=== PATIENT | female | born 1930 | race Caucasian/White ===

== ENCOUNTER 2019-06-16 09:36 | Inpatient (IN) | payer BC ==
--- NOTE | 2019-06-16 09:58 | EDM.PDOC ---
ED HPI GENERAL MEDICAL PROBLEM - General Chief Complaint: Upper Extremity Injury/Pain Stated Complaint: FALL RT SHOULDER PAIN Time Seen by Provider: 06/16/19 09:36 Source of Information: Reports: Patient, EMS History Limitations: Reports: Physical Impairment - History of Present Illness INITIAL COMMENTS - FREE TEXT/NARRATIVE: 88 y.o.w.f came to the ED by EMS after she fell on a ramp against a wall and hit her right shoulder and Head. No LOC. Pt has her right shoulder abducted, complaining of severe pain with any kind of movement. She noticed a "Bump" on her head as well. Pt has H/O esophageal CA. No N/V/D no CP, no SOB or any other acute med issues. BP 142/65 RR 18 Pulse oc 97% on RA Pulse 76 Temp 36.7 Onset Date: 06/16/19 Onset Time: 08:30 Duration: Minutes:, Hour(s): Location: Reports: Head, Neck, Upper Extremity, Right (shoulder) Quality: Reports: Dull, Pressure Severity: Moderate Improves with: Reports: Rest Worsens with: Reports: Movement Context: Reports: Trauma Associated Symptoms: Reports: No Other Symptoms Right shoulder Pain Score (Numeric/FACES): 10 - Related Data Allergies Allergy/AdvReac Type Severity Reaction Status Date / Time atorvastatin [From Lipitor] Allergy Other Verified 06/16/19 10:00 codeine Allergy Stomach Verified 06/16/19 10:00 Upset ibuprofen Allergy Swelling Verified 06/16/19 10:00 Penicillins Allergy Itching Verified 06/16/19 10:00 Home Meds: Home Meds Dextran 70/Hypromellose [Artificial Tears] 1 each EYEBOTH ASDIRECTED PRN [History] Glimepiride [Amaryl] 2 mg PO DAILY 06/16/19 [History] Pantoprazole 40 mg PO BID 06/16/19 [History] Prochlorperazine [Compazine] 10 mg PO Q6H PRN 06/16/19 [History] Review of Systems - Review of Systems Review Of Systems: See Below Constitutional: Reports: No Symptoms Eyes: Reports: No Symptoms Ears: Reports: No Symptoms Nose: Reports: Other (pain) Mouth/Throat: Reports: No Symptoms Respiratory: Reports: No Symptoms Cardiovascular: Reports: No Symptoms GI/Abdominal: Reports: No Symptoms Genitourinary: Reports: No Symptoms Musculoskeletal: Reports: Neck Pain, Shoulder Pain (right shoulder) Skin: Reports: No Symptoms Neurological: Reports: No Symptoms Psychiatric: Reports: No Symptoms ED EXAM, GENERAL - Physical Exam Exam: See Below Exam Limited By: Physical Impairment General Appearance: Alert, WD/WN, Moderate Distress Eye Exam: Bilateral Eye: Normal Inspection Ears: Normal External Exam, Normal Canal Ear Exam: Bilateral Ear: Auricle Normal Nose: Nasal Tenderness, Other (minor abrasion at nasal base) Throat/Mouth: Normal Inspection, Normal Lips, Normal Voice, No Airway Compromise Head: Facial Swelling (right foreheadm minor nasal deformity) Neck: Normal Inspection, Tender Lateral Respiratory/Chest: No Respiratory Distress, Lungs Clear, Normal Breath Sounds, Chest Non-Tender Cardiovascular: Normal Peripheral Pulses Peripheral Pulses: 2+: Brachial (L) GI/Abdominal: Normal Bowel Sounds (Female) Exam: Deferred Rectal (Female) Exam: Deferred Back Exam: Normal Inspection Extremities: Arm Pain, Limited Range of Motion (right shoulder with deformity) Neurological: Alert, Oriented, CN II-XII Intact, Normal Cognition Psychiatric: Normal Affect, Normal Mood Skin Exam: Wound/Incision (minor abration at base of nose) Lymphatic: No Adenopathy EKG INTERPRETATION EKG Date: 06/16/19 Time: 10:50 Rhythm: NSR Rate (Beats/Min): 59 [place]: Normal P-Wave: Present QRS: Normal ST-T: Depressed (T wave inversions inferior leads) QT: Normal Comparison: NA - No Prior EKG Course - Vital Signs Text/Narrative:: 88 y.o.w.f came to the ED by EMS after she fell on a ramp against a wall and hit her right shoulder and Head. No LOC. Pt has her right shoulder abducted, complaining of severe pain with any kind of movement. She noticed a "Bump" on her head as well. Pt has H/O esophageal CA. No N/V/D no CP, no SOB or any other acute med issues. BP 142/65 RR 18 Pulse oc 97% on RA Pulse 76 Temp 36.7 PE: WNWD W F with s/p Fall with right right shoulder pain, H/A and neck pain Imaging: CT right shoulder: Comminuted Fx with inferior dislocation CT head/ neck pending Labs: Pending ECG: Please see note above Impression: CT right shoulder: Comminuted Fx with inferior dislocation TX: [place] 10.58 am Consultation: Old ECG from 01/15/2013: NSR Nl ECG, no ST/T wave changes 11.05 am Consultation: Dr. Vega, Ortho: Scheduled right shoulder repair for tomorrow, admit to Hospitalist 11.14 am Consultation: Dr. Casanova, Hospitalist: Will accepted admission and further care 12.15 pm: Anesthesia has looked at the ECG and agreed to go forward with surgery tomorrow. Reexam: Improved, Pt's sister agreed to do the surgery at [facility]. Plan: Admit to [facility] Last Recorded V/S: Last Vital Signs Temp 36.5 C 06/16/19 09:41 Pulse 61 06/16/19 09:41 Resp 18 06/16/19 09:41 BP 142/65 H 06/16/19 09:41 Pulse Ox 97 06/16/19 09:41 - Orders/Labs/Meds Orders: Active Orders 24 hr Category Date Time Status CXR [Chest 1V Frontal] [CR] Stat Exams 06/16/19 10:51 Taken Cervical Spine wo Cont [CT] Stat Exams 06/16/19 10:49 Taken Head wo Cont [CT] Stat Exams 06/16/19 10:48 Taken Shoulder 1V Rt [CR] Stat Exams 06/16/19 10:48 Taken Upper Extremity wo Cont Rt [CT] Stat Exams 06/16/19 10:24 Taken BASIC METABOLIC PANEL,BMP [CHEM] Stat Lab 06/16/19 12:17 Ordered CBC WITH AUTO DIFF [HEME] Stat Lab 06/16/19 12:17 Ordered TROPONIN I [CHEM] Stat Lab 06/16/19 12:17 Ordered EKG 12 Lead [EK] Routine Ther 06/16/19 10:48 Ordered Labs: Laboratory Tests 06/16/19 06/16/19 Range/Units 11:30 11:30 Creatine Kinase 42 L (60-160) IU/L Troponin I < 0.017 L (<0.017-0.056) ng/mL Meds: Medications Discontinued Medications Generic Name Dose Route Start Last Admin Trade Name Freq PRN Reason Stop Dose Admin Hydrocodone Bitart/Acetaminophen 1 tab 06/16/19 10:04 06/16/19 10:08 [place] 325-5 Mg PO 06/16/19 10:05 1 tab ONETIME ONE Administration Departure - Departure Time of Disposition: 12:22 Disposition: Admitted As Inpatient 67 Condition: Fair Clinical Impression: Shoulder fracture, right Qualifiers: Encounter type: initial encounter Fracture type: closed Qualified Code(s): S42.91XA - Fracture of right shoulder girdle, part unspecified, initial encounter for closed fracture - Discharge Information Referrals: Isaiah Mcdowell MD [Primary Care Provider] - Forms: ED Department Discharge - My Orders Last 24 Hours: My Active Orders 06/16/19 10:24 Upper Extremity wo Cont Rt [CT] Stat 06/16/19 10:48 Head wo Cont [CT] Stat Shoulder 1V Rt [CR] Stat EKG 12 Lead [EK] Routine 06/16/19 10:49 Cervical Spine wo Cont [CT] Stat 06/16/19 10:51 CXR [Chest 1V Frontal] [CR] Stat 06/16/19 12:17 BASIC METABOLIC PANEL,BMP [CHEM] Stat CBC WITH AUTO DIFF [HEME] Stat TROPONIN I [CHEM] Stat - Assessment/Plan Last 24 Hours: My Active Orders 06/16/19 10:24 Upper Extremity wo Cont Rt [CT] Stat 06/16/19 10:48 Head wo Cont [CT] Stat Shoulder 1V Rt [CR] Stat EKG 12 Lead [EK] Routine 06/16/19 10:49 Cervical Spine wo Cont [CT] Stat 06/16/19 10:51 CXR [Chest 1V Frontal] [CR] Stat 06/16/19 12:17 BASIC METABOLIC PANEL,BMP [CHEM] Stat CBC WITH AUTO DIFF [HEME] Stat TROPONIN I [CHEM] Stat
[2019-06-16] MEDS ORDERED: Acetaminophen/HYDROcodone 325-5 MG Tab PO ONE (10:04)
[2019-06-16] MEDS ORDERED: Morphine 10 MG/ML SDV SUBCUT PRN (13:24)
[2019-06-16] MEDS ORDERED: Polyvinyl Alcohol 1.4% Ophth Soln 15 ML Bottle EYEBOTH PRN (14:00)
[2019-06-16] MEDS: Morphine 2 MG/ML Syringe IVPUSH PRN ×2 (19:02→22:48)
[2019-06-16] MEDS: Sodium Chloride 0.9% 10 ML Syringe FLUSH PRN (19:03)
[2019-06-16] MEDS: Pantoprazole 40 MG Tab.CR PO SCH (20:33)
[2019-06-16] MEDS: Lactated Ringers 1,000 ML IV SCH (22:50)
--- NOTE | 2019-06-16 23:45 | HP ---
ADMISSION DATE: 06/16/2019 CHIEF COMPLAINT: Right shoulder fracture. 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 According to the patient, she was walking and fell landing on her arm sustaining severe pain in the right shoulder area. She was taken to the emergency room at [facility] where she was examined by Dr. Garvey, found to have a shoulder fracture. An orthopedic consult from Dr. Vega was obtained and she is admitted now for surgical repair tomorrow. The patient states she is comfortable if she does not move her right arm. She keeps it in the right stop sign position to relieve the pain on that. PAST MEDICAL HISTORY: She was evaluated in September of 2018 for dysphagia and found to have a distal esophagus mass. Biopsy showed adenocarcinoma and she was treated with FOLFOX, completed in November of 2018. She has remained in remission. Complications included hypokalemia, diarrhea, and her symptoms have improved. She has type 2 diabetes, controlled with oral medication; osteoarthritis. 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 She has bilateral cataracts, macular degeneration, and decreased nutrition. MEDICATIONS: 1. Pantoprazole 40 mg b.i.d. 2. Compazine 10 mg every 6 hours p.r.n. 3. Glimepiride 2 mg daily. 4. Artificial Tears p.r.n. ALLERGIES: Atorvastatin, reaction not listed; codeine caused GI upset; ibuprofen caused swelling; and penicillins caused itching. HABITS: Nonsmoker and nondrinker. 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 She was accompanied by another sister to the hospital today. REVIEW OF SYSTEMS: GENERAL: No seizure, syncope, or recent significant weight change. SKIN: Negative for rash. HEENT: No recent changes in hearing or vision. She does wear hearing aids that she does not have with. She states her vision is adequate. No sore throat or URI. No current dysphagia. CARDIOPULMONARY: No cough, dyspnea, chest pain, or palpitations. No history of heart problems or lung problems to her knowledge. GASTROINTESTINAL: She has no current GI symptoms. No abdominal pain, diarrhea, constipation, hematochezia, or melena. MUSCULOSKELETAL: No joint inflammation or swelling, skin rash, or mood instability. PHYSICAL EXAMINATION: GENERAL: She is alert, comfortable, and a good historian. She looks younger than her 88 years. VITAL SIGNS: Blood pressure 142/56, pulse 57 and regular, respirations normal, O2 saturation 95% on room air, temperature 97.7, weight 152 pounds. SKIN: Anicteric. Warm and dry without rash. HEENT: TMs to be clear. Pupils are equal and reactive with cataracts visible. Oropharynx is clear with false upper and lower teeth. NECK: Supple. LUNGS: Clear with good air movement on the lateral side of her lungs. HEART: Regular. There is a 2/6 systolic murmur over the aortic area. No carotid radiation or carotid bruits. No JVD. ABDOMEN: Normal bowel sounds. Soft and nontender. No masses. No organomegaly. EXTREMITIES: Warm and well perfused. She has excellent pedal pulses. No edema. Her right upper extremity was not manipulated because of her fracture. Normal motion in left upper extremity. DIAGNOSTIC STUDIES: X-ray reveals a spiral displaced angulated and fracture of her right proximal humerus. White count 10,300, hemoglobin 13.5. Sodium 138, potassium 4.3, creatinine 1.1, glucose 207. Troponin 0.017. ASSESSMENT: 1. Spiral fracture, proximal right humerus. 2. History of esophageal cancer, post treatment in remission. 3. Type 2 diabetes. 4. Osteoarthritis. PLAN: EKG was reviewed that shows sinus rhythm at 59 beats per minute, T inversions in the inferior leads. No ST-segment changes. I consider Ms. Herrera ASA 3, but anticipate no complications from orthopedic surgery. She is to follow up with Dr. Vega's instructions for remaining n.p.o. We will continue to monitor and treat her diabetes, follow her electrolytes, renal function, and in addition provide palliative care for her underlying arthritis and infirmities of aging. Anticipate return to the [facility] at [facility] upon discharge. /[id number] RO/MODL
[2019-06-17] MEDS: Morphine 2 MG/ML Syringe IVPUSH PRN ×4 (02:52→23:05)
[2019-06-17] MEDS: Lactated Ringers 1,000 ML IV SCH ×3 (05:35→23:08)
[2019-06-17] MEDS: cefTRIAXone 1 GM Vial IVPUSH SCH (05:46)
[2019-06-17] MEDS: Sodium Chloride 0.9% 10 ML Syringe FLUSH PRN ×2 (05:46→12:11)
[2019-06-17] MEDS: Pantoprazole 40 MG Tab.CR PO SCH ×2 (06:06→20:24)
--- NOTE | 2019-06-17 08:31 | PN ---
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 This is markedly displaced and she had a consult by Dr. Vega who has planned to take her to surgery for repair this morning. The patient had urination last evening that was very strong and suggestive of UTI. Urinalysis showed greater than 100 white cells. She was started on lactated Ringer's at 150 mL/h and she was given Rocephin 1 g IV. She did not have specific burning with urination, etc. This morning, she is examined in her bed. She feels comfortable when her arm is not moving, but any movement causes pain. PHYSICAL EXAMINATION: GENERAL: She is alert, excellent historian, and looks younger than her age. VITAL SIGNS: Blood pressure 122/63, pulse 68 and regular, respirations 18, temperature 97.6, and O2 saturation 96% on room air. SKIN: Clear with no sign of trauma. LUNGS: Clear. HEART: Regular. ABDOMEN: Soft and nontender. EXTREMITIES: Show it to hold her right arm in the stop sign position. Normal spontaneous movement of her other extremities. LABORATORY DATA: Urinalysis 5-10 red cells, greater than 100 white cells, moderate occult blood, and negative nitrite. ASSESSMENT: 1. Right proximal humerus fracture. 2. Likely urinary tract infection. 3. Type 2 diabetes, controlled. 4. History of esophageal cancer, treatment completed, in remission. PLAN: She is to remain n.p.o. as per Dr. Vega instructions for surgery. I anticipate brief hospitalization postop with plans for her to return home to [facility] in [place] upon discharge. /[id number] RO/CANELOL
--- NOTE | 2019-06-17 10:16 | PCM.CONS ---
H&P History of Present Illness - General Date of Service: 06/16/19 Admit Problem/Dx: Admission Diagnosis/Problem Admission Diagnosis/Problem Shoulder injury Source of Information: Patient, Family, Provider History Limitations: Reports: No Limitations - History of Present Illness Onset of Symptoms: Reports: Sudden Symptom Onset Date: 06/16/19 Duration of Symptoms: Reports: Hour(s): Location: Reports: Upper Extremity, Right Quality: Reports: Burning, Sharp, Stabbing, Throbbing Severity: Moderate Improves with: Reports: Immobilization Worsens with: Reports: Movement Associated Symptoms: Reports: No Other Symptoms Right shoulder Pain Score (Numeric/FACES): 5 - Related Data Allergies/Adverse Reactions: Allergies Allergy/AdvReac Type Severity Reaction Status Date / Time atorvastatin [From Lipitor] Allergy Other Verified 06/16/19 10:00 codeine Allergy Stomach Verified 06/16/19 10:00 Upset ibuprofen Allergy Swelling Verified 06/16/19 10:00 Penicillins Allergy Itching Verified 06/16/19 10:00 Home Medications: Home Meds Dextran 70/Hypromellose [Artificial Tears] 1 each EYEBOTH ASDIRECTED PRN [History] Glimepiride [Amaryl] 2 mg PO DAILY 06/16/19 [History] Pantoprazole Sodium [Protonix] 40 mg PO BID 06/16/19 [History] Prochlorperazine [Compazine] 10 mg PO Q6H PRN 06/16/19 [History] Past Medical History HEENT History: Reports: Cataract, Hard of Hearing, Impaired Vision Cardiovascular History: Reports: None Respiratory History: Reports: None Gastrointestinal History: Reports: Jaundice Musculoskeletal History: Reports: Arthritis Psychiatric History: Reports: None Endocrine/Metabolic History: Reports: Diabetes, Type II Hematologic History: Reports: None Oncologic (Cancer) History: Reports: Esophageal Dermatologic History: Reports: None - Infectious Disease History Infectious Disease History: Reports: Chicken Pox, Measles, Mumps - Past Surgical History HEENT Surgical History: Reports: Adenoidectomy, Tonsillectomy Cardiovascular Surgical History: Reports: None Respiratory Surgical History: Reports: None GI Surgical History: Reports: Appendectomy, Colonoscopy, Other (See Below) Other GI Surgeries/Procedures: PEG tube Female Surgical History: Reports: Hysterectomy Oncologic Surgical History: Reports: None Social & Family History - Family History Family Medical History: Noncontributory - Tobacco Use Smoking Status *Q: Never Smoker Second Hand Smoke Exposure: No - Caffeine Use Caffeine Use: Reports: Coffee, Tea - Recreational Drug Use Recreational Drug Use: No H&P Review of Systems - Review of Systems: Review Of Systems: See Below General: Reports: No Symptoms HEENT: Reports: No Symptoms Pulmonary: Reports: No Symptoms Cardiovascular: Reports: No Symptoms Gastrointestinal: Reports: No Symptoms Genitourinary: Reports: No Symptoms Musculoskeletal: Reports: Shoulder Pain, Arm Pain, Joint Pain Skin: Reports: No Symptoms Psychiatric: Reports: No Symptoms Neurological: Reports: No Symptoms Hematologic/Lymphatic: Reports: No Symptoms Immunologic: Reports: No Symptoms Exam - Exam Exam: See Below - Vital Signs Vital Signs: Last Vital Signs Temp 97.6 F 06/16/19 23:00 Pulse 68 06/17/19 06:00 Resp 18 06/17/19 06:00 BP 122/63 06/17/19 06:00 Pulse Ox 96 06/17/19 06:00 Weight: 152 lb - Exam General: Alert, Oriented, Cooperative, Moderate Distress HEENT: PERRLA, Conjunctiva Clear, Hearing Intact, Mucosa Moist & [place] Neck: Supple, Trachea Midline Lungs: Normal Respiratory Effort GI/Abdominal Exam: No Distention Extremities: Arm Pain, Limited Range of Motion Peripheral Pulses: 2+: Radial (R) Skin: Warm, Dry, Intact Neuro Extensive - Mental Status: Alert, Oriented x3, Normal Mood/Affect, Normal Cognition, Memory Intact Psychiatric: Alert, Normal Affect, Normal Mood Physical Exam Comments:: Physical examination of the right upper extremity shows no tenderness to palpation distally on the arm, forearm, wrist, or fingers and the hand. Her refill time is less than 2 seconds. No paresthesias are noted over the lateral arm or distally on the right upper extremity. She has no tenderness to palpation over the clavicle. - Patient Data Lab Results Last 24 hrs: Laboratory Results - last 24 hr 06/16/19 06/16/19 06/16/19 Range/Units 11:30 11:30 11:30 WBC 10.3 (4.5-12.0) X10-3/uL RBC 4.40 (3.23-5.20) x10(6)uL Hgb 13.5 (11.5-15.5) g/dL Hct 38.6 (30.0-51.3) % MCV 87.9 (80-96) fL MCH 30.7 (27.7-33.6) pg MCHC 35.0 (32.2-35.4) g/dL RDW 13.3 (11.5-15.5) % Plt Count 181 (125-369) X10(3)uL MPV 8.3 (7.4-10.4) fL Add Manual Diff Yes Neutrophils % (Manual) 90 H (46-82) % Band Neutrophils % 3 (0-6) % Lymphocytes % (Manual) 5 L (13-37) % Monocytes % (Manual) 2 L (4-12) % Sodium (135-145) mmol/L Potassium (3.5-5.3) mmol/L Chloride (100-110) mmol/L Carbon Dioxide (21-32) mmol/L BUN (7-18) mg/dL Creatinine (0.55-1.02) mg/dL Est Cr Clr Drug Dosing mL/min Estimated GFR (MDRD) (>60) BUN/Creatinine Ratio (9-20) Glucose (80-116) mg/dL POC Glucose (80-116) mg/dL Calcium (8.6-10.2) mg/dL Creatine Kinase 42 L (60-160) IU/L Troponin I < 0.017 L (<0.017-0.056) ng/mL Urine Color (YELLOW) Urine Appearance (CLEAR) Urine pH (5.0-6.5) Ur Specific [place] (1.010-1.025) Urine Protein (NEGATIVE) mg/dL Urine Glucose (UA) (NORMAL) mg/dL Urine Ketones (NEGATIVE) mg/dL Urine Occult Blood (NEGATIVE) Urine Nitrite (NEGATIVE) Urine Bilirubin (NEGATIVE) Urine Urobilinogen (NEGATIVE) mg/dL Ur Leukocyte Esterase (NEGATIVE) Urine RBC (0-5) Urine WBC (0-5) Ur Squamous Epith Cells (NS,R,O) Urine Bacteria (NS) Urine Mucus (NS) Blood Type Gel Antibody Screen 06/16/19 06/16/19 06/16/19 Range/Units 11:30 11:30 17:32 WBC (4.5-12.0) X10-3/uL RBC (3.23-5.20) x10(6)uL Hgb (11.5-15.5) g/dL Hct (30.0-51.3) % MCV (80-96) fL MCH (27.7-33.6) pg MCHC (32.2-35.4) g/dL RDW (11.5-15.5) % Plt Count (125-369) X10(3)uL MPV (7.4-10.4) fL Add Manual Diff Neutrophils % (Manual) (46-82) % Band Neutrophils % (0-6) % Lymphocytes % (Manual) (13-37) % Monocytes % (Manual) (4-12) % Sodium 138 (135-145) mmol/L Potassium 4.3 (3.5-5.3) mmol/L Chloride 104 (100-110) mmol/L Carbon Dioxide 26 (21-32) mmol/L BUN 21 H (7-18) mg/dL Creatinine 1.1 H (0.55-1.02) mg/dL Est Cr Clr Drug Dosing 27.19 mL/min Estimated GFR (MDRD) 47 L (>60) BUN/Creatinine Ratio 19.1 (9-20) Glucose 207 H (80-116) mg/dL POC Glucose 176 H (80-116) mg/dL Calcium 9.3 (8.6-10.2) mg/dL Creatine Kinase (60-160) IU/L Troponin I (<0.017-0.056) ng/mL Urine Color (YELLOW) Urine Appearance (CLEAR) Urine pH (5.0-6.5) Ur Specific [place] (1.010-1.025) Urine Protein (NEGATIVE) mg/dL Urine Glucose (UA) (NORMAL) mg/dL Urine Ketones (NEGATIVE) mg/dL Urine Occult Blood (NEGATIVE) Urine Nitrite (NEGATIVE) Urine Bilirubin (NEGATIVE) Urine Urobilinogen (NEGATIVE) mg/dL Ur Leukocyte Esterase (NEGATIVE) Urine RBC (0-5) Urine WBC (0-5) Ur Squamous Epith Cells (NS,R,O) Urine Bacteria (NS) Urine Mucus (NS) Blood Type AB POSITIVE Gel Antibody Screen Negative 06/17/19 Range/Units 02:45 WBC (4.5-12.0) X10-3/uL RBC (3.23-5.20) x10(6)uL Hgb (11.5-15.5) g/dL Hct (30.0-51.3) % MCV (80-96) fL MCH (27.7-33.6) pg MCHC (32.2-35.4) g/dL RDW (11.5-15.5) % Plt Count (125-369) X10(3)uL MPV (7.4-10.4) fL Add Manual Diff Neutrophils % (Manual) (46-82) % Band Neutrophils % (0-6) % Lymphocytes % (Manual) (13-37) % Monocytes % (Manual) (4-12) % Sodium (135-145) mmol/L Potassium (3.5-5.3) mmol/L Chloride (100-110) mmol/L Carbon Dioxide (21-32) mmol/L BUN (7-18) mg/dL Creatinine (0.55-1.02) mg/dL Est Cr Clr Drug Dosing mL/min Estimated GFR (MDRD) (>60) BUN/Creatinine Ratio (9-20) Glucose (80-116) mg/dL POC Glucose (80-116) mg/dL Calcium (8.6-10.2) mg/dL Creatine Kinase (60-160) IU/L Troponin I (<0.017-0.056) ng/mL Urine Color Yellow (YELLOW) Urine Appearance Cloudy (CLEAR) Urine pH 5.0 (5.0-6.5) Ur Specific [place] 1.015 (1.010-1.025) Urine Protein Negative (NEGATIVE) mg/dL Urine Glucose (UA) Normal (NORMAL) mg/dL Urine Ketones Negative (NEGATIVE) mg/dL Urine Occult Blood Moderate H (NEGATIVE) Urine Nitrite Negative (NEGATIVE) Urine Bilirubin Negative (NEGATIVE) Urine Urobilinogen Normal (NEGATIVE) mg/dL Ur Leukocyte Esterase Large H (NEGATIVE) Urine RBC 5-10 H (0-5) Urine WBC >100 H (0-5) Ur Squamous Epith Cells Few H (NS,R,O) Urine Bacteria Many H (NS) Urine Mucus Few H (NS) Blood Type Gel Antibody Screen Result Diagrams: 06/16/19 11:30 06/16/19 11:30 Consult PN Assessment/Plan POD#: 0 Problem List Initiated/Reviewed/Updated: Yes My Orders Last 24 Hours: My Active Orders 06/16/19 14:20 Verify Patient Consent Obtain [RC] ASDIRECTED Sodium Chloride 0.9% [Saline Flush] 10 ml FLUSH ASDIRECTED PRN Peripheral IV Insertion Adult [OM.PC] Routine 06/17/19 11:30 Acetaminophen [Tylenol Extra Strength] 1,000 mg PO ONETIME ONE Gabapentin [Neurontin] 300 mg PO ONETIME ONE Scopolamine [Transderm-Scop] 1.5 mg TRDERM ONETIME ONE 06/17/19 12:30 Insert Forrest Catheter [Insert Urinary Catheter] [OM.PC] Q24H Urinary Catheter Assessment [RC] QSHIFT Clindamycin in 0.9 % Sod Chlor [Cleocin in NS] 900 mg in 50 ml IV ONETIME Ropivacaine [Naropin 0.5%] 49.25 ml EPINEPHrine [Adrenalin] 0.5 mg cloNIDine [ Duraclon] 80 mcg Sodium Chloride 0.9% [Normal Saline] 49.45 ml INJECT ASDIRECTED 06/17/19 13:00 Tranexamic Acid [Cyklokapron] 3,000 mg Sodium Chloride 0.9% [Normal Saline] 100 ml IRR ONETIME Plan: Imaging: Plain films as well as CT show a four-part comminuted proximal humerus and humeral head fracture. The shaft appears normal. Plan: I explained to the patient as well as one of the other sisters that were with her that unfortunately this is operative because of the four-part displaced fracture. I recommended a total versus reverse total shoulder arthroplasty. We can complete this on Sunday when we have ultrasound available for an interscalene block. Risks and benefits of the procedure were explained to the patient. She'll be admitted to the hospitalist service and nothing by mouth after midnight.
[2019-06-17] MEDS ORDERED: Lactated Ringers 1,000 ML IV SCH (11:30)
[2019-06-17] MEDS ORDERED: Scopolamine 1.5 MG Transdermal Patch TRDERM ONE (11:30)
[2019-06-17] MEDS ORDERED: Gabapentin 300 MG Cap PO ONE (11:30)
[2019-06-17] MEDS ORDERED: Acetaminophen 500 MG Tab PO ONE (11:30)
[2019-06-17] MEDS ORDERED: Clindamycin in 0.9 % Sod Chlor 900 MG/50 ML BAG IV ONE (12:30)
[2019-06-17] MEDS ORDERED: Ropivacaine 49.25 ML, EPINEPHrine 0.5 MG, cloNIDine 80 MCG, Sodium Chloride 0.9% 49.45 ML INJECT SCH ×4 (12:30)
[2019-06-17] MEDS ORDERED: ePHEDrine 50 MG/ML SDV IV ONE (12:34)
[2019-06-17] MEDS ORDERED: fentaNYL 100 MCG/2 ML SDV IV ONE (12:34)
[2019-06-17] MEDS ORDERED: Ropivacaine 0.5% 5 MG/ML 20 ML SDV INJECT ONE (12:34)
[2019-06-17] MEDS ORDERED: Midazolam 1 MG/ML 2 ML SDV IV ONE (12:34)
[2019-06-17] MEDS ORDERED: Succinylcholine 200 MG/10 ML MDV IV ONE (12:34)
[2019-06-17] MEDS ORDERED: Dextrose 5% in Water 500 ML IV ONE (12:34)
[2019-06-17] MEDS ORDERED: Phenylephrine 1% 10 MG/ML SDV IV ONE (12:34)
[2019-06-17] MEDS ORDERED: Lactated Ringers 1,000 ML IV ONE (12:34)
[2019-06-17] MEDS ORDERED: Rocuronium 50 MG/5 ML Vial IV ONE (12:34)
[2019-06-17] MEDS ORDERED: Propofol 200 MG/20 ML SDV IV ONE (12:34)
[2019-06-17] MEDS ORDERED: Tranexamic Acid 3,000 MG, Sodium Chloride 0.9% 100 ML IRR ONE ×2 (13:00)
--- NOTE | 2019-06-17 13:42 | PCM.SN ---
- Free Text/Narrative Note: ANESTHESIA ACUTE PAIN SERVICE Date: 06/17/2019 Time: 1209 to 1236 Preoperative Dx: Right Proximal Humerus Fx with Dislocation Postoperative Rx: Right Reverse Total Shoulder Arthroplasty Procedure: Right Interscalene Nerve Block with Ultrasound [U/S] Guidance and Nerve Stimulation Dr. Vega requested a peripheral nerve block for postoperative pain control. I discussed this procedure with the patient and friend detailing the risks and benefits of this nerve block including failure and chronic neck pain. All of their questions are answered and the patient wishes to proceed. A consent was obtained. Monitors: NIBP, Heart Rate, SpO2 and Nasal O2 at 3 L/M. Sedation: Versed in divided doses to a total of 2 mg's IV. The patient was easily aroused and orientated throughout the procedure. The patient was placed in a supine position with the H.O.B. elevated 45 degrees and her head turned to the left. A preprocedure U/S scan was done revealing some distorted anatomy due to her right arm positioning and very short clavicle. Under direct visualization, I located the Anterior and Middle Scalene muscles and what appeared to be the chaining of the right Brachial Plexus. I prepped the site widely with a Chlora-Prep swab X 1 and allowed to dry. Using aseptic technique, I infiltrated the needle insertion site with 1% Lidocaine plain [1ml] using a 30 Ga. needle. Then under direct U/S visualization, I then inserted a 22 Ga. 2 In. Stimuplex Ultra 360 Insulated Echogenic Needle and advanced it to a good position. I did have a nerve stimulator on during this time and got a positive Biceps response at .4 mA which was gone after an injection of 1 ml of normal saline. Under direct U/S visualization, a total of 20 ml's .5% Naropin was given in divided doses with frequent negative aspirations for blood. The patient tolerated this well without complaints and no local toxicity was noted. After about 5 minutes postblock, she stated she had no pain. Documentation: Please see the PAC system in Radiology for images taken of this nerve block. Thank you for using this service. CHEVY New CRNA
--- NOTE | 2019-06-17 15:10 | PCM.OPNOTE ---
- General Post-Op/Procedure Note Date of Surgery/Procedure: 06/17/19 Operative Procedure(s): right reverse total shoulder arthroplasty Pre Op Diagnosis: right proximal humerus fracture, closed Post-Op Diagnosis: Same Anesthesia Technique: General ET Tube, Regional Block Primary Surgeon: Glen Vega Anesthesia Provider: Cindy Tyler EBL in mLs: 200 Drain/Tube Comments:: prevena 13cm wound vac Complications: none Condition: Good
[2019-06-17] MEDS: Clindamycin in 0.9 % Sod Chlor 600 MG/50 ML BAG IV SCH (20:24)
[2019-06-17] MEDS: Glimepiride 2 MG Tab PO SCH (23:02)
[2019-06-18] MEDS: Clindamycin in 0.9 % Sod Chlor 600 MG/50 ML BAG IV SCH (04:21)
[2019-06-18] MEDS: cefTRIAXone 1 GM Vial IVPUSH SCH (05:43)
[2019-06-18] MEDS: Sodium Chloride 0.9% 10 ML Syringe FLUSH PRN (05:45)
[2019-06-18] MEDS: Pantoprazole 40 MG Tab.CR PO SCH (05:49)
[2019-06-18] MEDS: Lactated Ringers 1,000 ML IV SCH (06:15)
[2019-06-18] MEDS: Aspirin 325 MG Tab.EC PO SCH (08:17)
--- NOTE | 2019-06-18 09:06 | PCM.PN ---
- General Info Date of Service: 06/18/19 Admission Dx/Problem (Free Text): Admission Diagnosis/Problem Admission Diagnosis/Problem Shoulder injury Functional Status: Reports: Pain Controlled, Tolerating Diet, Ambulating - Review of Systems General: Reports: No Symptoms HEENT: Reports: No Symptoms Pulmonary: Reports: No Symptoms Cardiovascular: Reports: No Symptoms Gastrointestinal: Reports: No Symptoms Genitourinary: Reports: No Symptoms Musculoskeletal: Reports: Shoulder Pain Skin: Reports: No Symptoms Neurological: Reports: No Symptoms Psychiatric: Reports: No Symptoms - Patient Data Vitals - Most Recent: Last Vital Signs Temp 99.0 F 06/18/19 07:45 Pulse 90 06/18/19 07:45 Resp 18 06/18/19 07:45 BP 110/52 L 06/18/19 07:45 Pulse Ox 97 06/18/19 07:50 Weight - Most Recent: 152 lb I&O - Last 24 Hours: Intake & Output 06/17/19 06/18/19 06/18/19 22:59 06:59 14:59 Intake Total 466 2102 240 Output Total 175 850 Balance 291 1252 240 Lab Results Last 24 Hours: Laboratory Results - last 24 hr 06/16/19 06/17/19 06/17/19 Range/Units 20:37 08:21 21:47 WBC (4.5-12.0) X10-3/uL RBC (3.23-5.20) x10(6)uL Hgb (11.5-15.5) g/dL Hct (30.0-51.3) % MCV (80-96) fL MCH (27.7-33.6) pg MCHC (32.2-35.4) g/dL RDW (11.5-15.5) % Plt Count (125-369) X10(3)uL MPV (7.4-10.4) fL Add Manual Diff Neutrophils % (Manual) (46-82) % Lymphocytes % (Manual) (13-37) % Monocytes % (Manual) (4-12) % Sodium (135-145) mmol/L Potassium (3.5-5.3) mmol/L Chloride (100-110) mmol/L Carbon Dioxide (21-32) mmol/L BUN (7-18) mg/dL Creatinine (0.55-1.02) mg/dL Est Cr Clr Drug Dosing mL/min Estimated GFR (MDRD) (>60) BUN/Creatinine Ratio (9-20) Glucose (80-116) mg/dL POC Glucose 185 H 114 145 H (80-116) mg/dL Calcium (8.6-10.2) mg/dL 06/18/19 06/18/19 Range/Units 06:05 06:05 WBC 9.8 (4.5-12.0) X10-3/uL RBC 3.15 L (3.23-5.20) x10(6)uL Hgb 9.8 L D (11.5-15.5) g/dL Hct 27.8 L D (30.0-51.3) % MCV 88.2 (80-96) fL MCH 31.2 (27.7-33.6) pg MCHC 35.3 (32.2-35.4) g/dL RDW 13.7 (11.5-15.5) % Plt Count 146 (125-369) X10(3)uL MPV 8.0 (7.4-10.4) fL Add Manual Diff Yes Neutrophils % (Manual) 94 H (46-82) % Lymphocytes % (Manual) 2 L (13-37) % Monocytes % (Manual) 4 (4-12) % Sodium 136 (135-145) mmol/L Potassium 4.3 (3.5-5.3) mmol/L Chloride 101 (100-110) mmol/L Carbon Dioxide 26 (21-32) mmol/L BUN 14 (7-18) mg/dL Creatinine 1.0 (0.55-1.02) mg/dL Est Cr Clr Drug Dosing 29.91 mL/min Estimated GFR (MDRD) 52 L (>60) BUN/Creatinine Ratio 14.0 (9-20) Glucose 141 H (80-116) mg/dL POC Glucose (80-116) mg/dL Calcium 7.8 L (8.6-10.2) mg/dL Justice Results Last 24 Hours: Microbiology 06/17/19 02:45 Urine Culture - Final Urine, Bladder Escherichia Coli Med Orders - Current: Current Medications Acetaminophen (Tylenol) 650 mg PO Q4H PRN PRN Reason: Pain Artificial Tears (Liquitears 1.4% Ophth Soln) 0 ml EYEBOTH ASDIRECTED PRN PRN Reason: DRY EYES Aspirin (Ecotrin) 325 mg PO DAILY [facility] Last Admin: 06/18/19 08:17 Dose: 325 mg Ropivacaine 49.25 ml/Epinephrine HCl 0.5 mg/Clonidine HCl 80 mcg/ Sodium Chloride 49.45 ml 0 ml INJECT ASDIRECTED [facility] Last Admin: 06/17/19 13:10 Dose: 100 syringe Glimepiride (Amaryl) 2 mg PO WITHBREAKFAST [facility] Last Admin: 06/17/19 23:02 Dose: Not Given Heparin Sodium (Porcine) (Heparin Lock Flush 100 Units/Ml) 500 units FLUSH ASDIRECTED PRN PRN Reason: Keep Vein Open Last Admin: 06/17/19 12:14 Dose: 500 units Lactated Ringer's (Ringers, Lactated) 1,000 mls @ 150 mls/hr IV ASDIRECTED [facility] Last Admin: 06/18/19 06:15 Dose: 150 mls/hr Morphine Sulfate (Morphine) 2 mg IVPUSH Q2H PRN PRN Reason: Pain Last Admin: 06/17/19 23:05 Dose: 2 mg Morphine Sulfate (Morphine) 6 mg SUBCUT Q4H PRN PRN Reason: Pain Pantoprazole Sodium (Protonix) 40 mg PO BID@0600,2100 [facility] Last Admin: 06/18/19 05:49 Dose: 40 mg Sodium Chloride (Saline Flush) 10 ml FLUSH ASDIRECTED PRN PRN Reason: Keep Vein Open Last Admin: 06/18/19 05:45 Dose: 10 ml Sodium Chloride (Saline Flush) 10 ml FLUSH ASDIRECTED PRN PRN Reason: Keep Vein Open Last Admin: 06/17/19 05:46 Dose: 10 ml Discontinued Medications Acetaminophen (Tylenol Extra Strength) 1,000 mg PO ONETIME ONE Stop: 06/17/19 11:31 Last Admin: 06/17/19 13:08 Dose: Not Given Hydrocodone Bitart/Acetaminophen ([place] 325-5 Mg) 1 tab PO ONETIME ONE Stop: 06/16/19 10:05 Last Admin: 06/16/19 10:08 Dose: 1 tab Ceftriaxone Sodium (Rocephin) 1 gm IVPUSH Q24H [facility] Last Admin: 06/18/19 05:43 Dose: 1 gm Tranexamic Acid 3,000 mg/ (Sodium Chloride 100 ml) 0 mg IRR ONETIME ONE Stop: 06/17/19 13:01 Last Admin: 06/17/19 13:11 Dose: 100 irr Gabapentin (Neurontin) 300 mg PO ONETIME ONE Stop: 06/17/19 11:31 Last Admin: 06/17/19 13:08 Dose: Not Given Clindamycin/Sodium Chloride (Cleocin In Ns) 900 mg in 50 mls @ 100 mls/hr IV ONETIME ONE Stop: 06/17/19 12:59 Last Admin: 06/17/19 11:55 Dose: 100 mls/hr Lactated Ringer's (Ringers, Lactated) 1,000 mls @ 125 mls/hr IV ASDIRECTED JEFFREY Clindamycin/Sodium Chloride (Cleocin In Ns) 600 mg in 50 mls @ 100 mls/hr IV Q8H JEFFREY Stop: 06/18/19 04:29 Last Admin: 06/18/19 04:21 Dose: 100 mls/hr Scopolamine (Transderm-Scop) 1.5 mg TRDERM ONETIME ONE Stop: 06/17/19 11:31 Last Admin: 06/17/19 13:07 Dose: Not Given - Exam General: Alert, Oriented, Cooperative, No Acute Distress HEENT: Pupils Equal, Pupils Reactive, EOMI, Mucous Membr. Moist/[place] Neck: Supple, Trachea Midline Lungs: Normal Respiratory Effort GI/Abdominal Exam: No Distention Extremities: Joint Swelling, Limited Range of Motion, Increased Warmth Peripheral Pulses: 2+: Radial (R) Skin: Warm, Dry, Intact Wound/Incisions: Healing Well, Dressing Dry and Intact, No Drainage Neurological: No New Focal Deficit Psy/Mental Status: Alert, Normal Affect, Normal Mood - Problem List & Annotations (1) Shoulder fracture, right SNOMED Code(s): 99289480572802479, 95215354181004312 Code(s): S42.91XA - FRACTURE OF RIGHT SHOULDER GIRDLE, PART UNSP, INIT Status: Acute Current Visit: Yes Qualifiers: Encounter type: initial encounter Fracture type: closed Qualified Code(s) : S42.91XA - Fracture of right shoulder girdle, part unspecified, initial encounter for closed fracture - Problem List Review Problem List Initiated/Reviewed/Updated: Yes - My Orders Last 24 Hours: My Active Orders 06/17/19 12:30 Insert Torrez Catheter [Insert Urinary Catheter] [OM.PC] Q24H Urinary Catheter Assessment [RC] QSHIFT Ropivacaine [Naropin 0.5%] 49.25 ml EPINEPHrine [Adrenalin] 0.5 mg cloNIDine [ Duraclon] 80 mcg Sodium Chloride 0.9% [Normal Saline] 49.45 ml INJECT ASDIRECTED 06/17/19 15:39 Acetaminophen [Tylenol] 650 mg PO Q4H PRN 06/17/19 18:16 Fluoro Up To 1Hr [CR] Routine 06/17/19 Dinner Clear Liquid Diet [DIET] 06/18/19 09:00 Aspirin [Ecotrin] 325 mg PO DAILY - Plan Plan:: A: 88 yo female POD 1 Right reverse TSA P: DVT prophylaxis, pain control, PT, OT. Remove torrez. Start PROM in 3 days
[2019-06-18] MEDS ORDERED: Acetaminophen/HYDROcodone 325-5 MG Tab PO PRN ×2 (10:09→10:10)
[2019-06-18] MEDS: Morphine 2 MG/ML Syringe IVPUSH PRN (10:10)
--- NOTE | 2019-06-18 11:15 | PN ---
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 She underwent ORIF by Dr. Aguilar yesterday and has had a good postoperative course. She is reporting moderate pain in the right shoulder at this time. She has eaten breakfast and is drinking fluids adequately. She has a Forrest catheter in place and she has recently been walking about the room with assistance. PHYSICAL EXAMINATION: GENERAL: She is alert, comfortable, an excellent historian. VITAL SIGNS: Blood pressure 110/52, pulse 90 and regular, respirations normal, O2 saturation 97% on 1 L nasal cannula oxygen. SKIN: Clear. LUNGS: Clear to the bases. HEART: Regular without murmur or gallop. EXTREMITIES: Show her right arm to be in a shoulder immobilizer. No peripheral edema. LABORATORY DATA: Hemoglobin 9.8 g, white count 9800, creatinine 1.0. Electrolytes normal. Urinalysis from yesterday showed UTI. ASSESSMENT: 1. Day one postop right shoulder open reduction and internal fixation. 2. Type 2 diabetes. 3. Urinary tract infection. 4. History of esophageal cancer, status post treatment with no known active disease. PLAN: We will increase her activity as tolerated by keeping her shoulder immobilized per Dr. Vega. We will continue to monitor blood sugars. Add an oral analgesic in hydrocodone. We will remove her Forrest catheter later today and recheck urinalysis tomorrow. I anticipate discharge back to [facility] when safe from an orthopedic standpoint. /[id number] RO/MODL
[2019-06-18] MEDS: Acetaminophen 325 MG Tab PO PRN (17:00)
[2019-06-19] MEDS: Pantoprazole 40 MG Tab.CR PO SCH (05:44)
[2019-06-19] MEDS: Glimepiride 2 MG Tab PO SCH (08:11)
[2019-06-19] MEDS: Acetaminophen 325 MG Tab PO PRN (08:11)
[2019-06-19] MEDS: Aspirin 325 MG Tab.EC PO SCH (08:11)
--- NOTE | 2019-06-19 09:45 | PN ---
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 She underwent ORIF by Dr. Vega on 06/17/2019. She has been doing well postoperatively. She also has a history of type 2 diabetes and a remote history of esophageal cancer. She has been eating, up walking. She says her pain control is adequate on oral medications and she is anxious to go home. PHYSICAL EXAMINATION: GENERAL: She is alert, comfortable, and a good historian. VITAL SIGNS: Blood pressure 93/51, pulse 88 and regular, respirations 16 and O2 saturation 93% on room air. Weight 152 pounds. HEENT: She has bruising over her face in the raccoon eyes distribution. EXTREMITIES: She is in a right shoulder immobilizer. No other areas of skin trauma noted. MOUTH: Dry. LUNGS: Clear. HEART: Regular with a systolic murmur. ABDOMEN: Soft. EXTREMITIES: Showed no ankle edema. LABORATORY DATA: Urinalysis: 5-10 red cells and 10-20 white cells. ASSESSMENT: 1. Postoperative right shoulder fracture. 2. Type 2 diabetes. 3. Postoperative anemia. 4. History of esophageal cancer, treated. 5. Urinary tract infection. PLAN: We will treat her with Macrobid for the UTI. Continue her other medications and discharge when Dr. Vega feels she is appropriate for discharge from an orthopedic standpoint. /[id number] ELSA/BRIANA
--- NOTE | 2019-06-19 10:10 | PCM.PN ---
- General Info Date of Service: 06/19/19 Admission Dx/Problem (Free Text): Admission Diagnosis/Problem Admission Diagnosis/Problem Shoulder injury Functional Status: Reports: Pain Controlled, Tolerating Diet, Ambulating, Urinating - Review of Systems General: Reports: No Symptoms HEENT: Reports: No Symptoms Pulmonary: Reports: No Symptoms Cardiovascular: Reports: No Symptoms Gastrointestinal: Reports: No Symptoms Genitourinary: Reports: No Symptoms Musculoskeletal: Reports: Shoulder Pain Skin: Reports: No Symptoms Neurological: Reports: No Symptoms Psychiatric: Reports: No Symptoms - Patient Data Vitals - Most Recent: Last Vital Signs Temp 97.7 F 06/19/19 00:00 Pulse 88 06/19/19 08:00 Resp 16 06/19/19 08:00 BP 93/51 L 06/19/19 08:00 Pulse Ox 93 L 06/19/19 08:00 Weight - Most Recent: 152 lb I&O - Last 24 Hours: Intake & Output 06/18/19 06/19/19 06/19/19 22:59 06:59 14:59 Output Total 100 300 Balance -100 -300 Lab Results Last 24 Hours: Laboratory Results - last 24 hr 06/18/19 06/18/19 06/18/19 Range/Units 07:45 11:41 20:48 POC Glucose 157 H 176 H 240 H (80-116) mg/dL Urine Color (YELLOW) Urine Appearance (CLEAR) Urine pH (5.0-6.5) Ur Specific [place] (1.010-1.025) Urine Protein (NEGATIVE) mg/dL Urine Glucose (UA) (NORMAL) mg/dL Urine Ketones (NEGATIVE) mg/dL Urine Occult Blood (NEGATIVE) Urine Nitrite (NEGATIVE) Urine Bilirubin (NEGATIVE) Urine Urobilinogen (NEGATIVE) mg/dL Ur Leukocyte Esterase (NEGATIVE) Urine RBC (0-5) Urine WBC (0-5) Ur Squamous Epith Cells (NS,R,O) Urine Bacteria (NS) 06/19/19 Range/Units 05:30 POC Glucose (80-116) mg/dL Urine Color Yellow (YELLOW) Urine Appearance Cloudy (CLEAR) Urine pH 7.0 H (5.0-6.5) Ur Specific [place] 1.005 L (1.010-1.025) Urine Protein Negative (NEGATIVE) mg/dL Urine Glucose (UA) Normal (NORMAL) mg/dL Urine Ketones Negative (NEGATIVE) mg/dL Urine Occult Blood Moderate H (NEGATIVE) Urine Nitrite Negative (NEGATIVE) Urine Bilirubin Negative (NEGATIVE) Urine Urobilinogen 1 H (NEGATIVE) mg/dL Ur Leukocyte Esterase Large H (NEGATIVE) Urine RBC 5-10 H (0-5) Urine WBC 10-20 H (0-5) Ur Squamous Epith Cells Few H (NS,R,O) Urine Bacteria Moderate H (NS) Justice Results Last 24 Hours: Microbiology 06/17/19 02:45 Urine Culture - Final Urine, Bladder Escherichia Coli Med Orders - Current: Current Medications Acetaminophen (Tylenol) 650 mg PO Q4H PRN PRN Reason: Pain Last Admin: 06/19/19 08:11 Dose: 650 mg Hydrocodone Bitart/Acetaminophen ([place] 325-5 Mg) 1 tab PO Q4H PRN PRN Reason: Pain (moderate 4-6) Hydrocodone Bitart/Acetaminophen ([place] 325-5 Mg) 2 tab PO Q4H PRN PRN Reason: severe pain Artificial Tears (Liquitears 1.4% Ophth Soln) 0 ml EYEBOTH ASDIRECTED PRN PRN Reason: DRY EYES Aspirin (Ecotrin) 325 mg PO DAILY [facility] Last Admin: 06/19/19 08:11 Dose: 325 mg Ropivacaine 49.25 ml/Epinephrine HCl 0.5 mg/Clonidine HCl 80 mcg/ Sodium Chloride 49.45 ml 0 ml INJECT ASDIRECTED [facility] Last Admin: 06/17/19 13:10 Dose: 100 syringe Glimepiride (Amaryl) 2 mg PO WITHBREAKFAST [facility] Last Admin: 06/19/19 08:11 Dose: 2 mg Heparin Sodium (Porcine) (Heparin Lock Flush 100 Units/Ml) 500 units FLUSH ASDIRECTED PRN PRN Reason: Keep Vein Open Last Admin: 06/17/19 12:14 Dose: 500 units Morphine Sulfate (Morphine) 2 mg IVPUSH Q2H PRN PRN Reason: Pain Last Admin: 06/18/19 10:10 Dose: 2 mg Morphine Sulfate (Morphine) 6 mg SUBCUT Q4H PRN PRN Reason: Pain Nitrofurantoin Macrocrystals (Macrobid) 100 mg PO BID [facility] Pantoprazole Sodium (Protonix) 40 mg PO 0600 [facility] Last Admin: 06/19/19 05:44 Dose: 40 mg Sodium Chloride (Saline Flush) 10 ml FLUSH ASDIRECTED PRN PRN Reason: Keep Vein Open Last Admin: 06/17/19 05:46 Dose: 10 ml Discontinued Medications Acetaminophen (Tylenol Extra Strength) 1,000 mg PO ONETIME ONE Stop: 06/17/19 11:31 Last Admin: 06/17/19 13:08 Dose: Not Given Hydrocodone Bitart/Acetaminophen ([place] 325-5 Mg) 1 tab PO ONETIME ONE Stop: 06/16/19 10:05 Last Admin: 06/16/19 10:08 Dose: 1 tab Ceftriaxone Sodium (Rocephin) 1 gm IVPUSH Q24H [facility] Last Admin: 06/18/19 05:43 Dose: 1 gm Tranexamic Acid 3,000 mg/ (Sodium Chloride 100 ml) 0 mg IRR ONETIME ONE Stop: 06/17/19 13:01 Last Admin: 06/17/19 13:11 Dose: 100 irr Gabapentin (Neurontin) 300 mg PO ONETIME ONE Stop: 06/17/19 11:31 Last Admin: 06/17/19 13:08 Dose: Not Given Clindamycin/Sodium Chloride (Cleocin In Ns) 900 mg in 50 mls @ 100 mls/hr IV ONETIME ONE Stop: 06/17/19 12:59 Last Admin: 06/17/19 11:55 Dose: 100 mls/hr Lactated Ringer's (Ringers, Lactated) 1,000 mls @ 125 mls/hr IV ASDIRECTED [facility] Lactated Ringer's (Ringers, Lactated) 1,000 mls @ 150 mls/hr IV ASDIRECTED [facility] Last Admin: 06/18/19 06:15 Dose: 150 mls/hr Clindamycin/Sodium Chloride (Cleocin In Ns) 600 mg in 50 mls @ 100 mls/hr IV Q8H [facility] Stop: 06/18/19 04:29 Last Admin: 06/18/19 04:21 Dose: 100 mls/hr Pantoprazole Sodium (Protonix) 40 mg PO BID@0600,2100 [facility] Last Admin: 06/18/19 05:49 Dose: 40 mg Scopolamine (Transderm-Scop) 1.5 mg TRDERM ONETIME ONE Stop: 06/17/19 11:31 Last Admin: 06/17/19 13:07 Dose: Not Given Sodium Chloride (Saline Flush) 10 ml FLUSH ASDIRECTED PRN PRN Reason: Keep Vein Open Last Admin: 06/18/19 05:45 Dose: 10 ml - Exam General: Alert, Oriented, Cooperative, No Acute Distress HEENT: Pupils Equal, Pupils Reactive, EOMI, Mucous Membr. Moist/[place] Neck: Supple, Trachea Midline Lungs: Normal Respiratory Effort GI/Abdominal Exam: No Distention Extremities: Joint Swelling, Limited Range of Motion Peripheral Pulses: 2+: Radial (R) Skin: Warm, Dry, Intact Wound/Incisions: Healing Well, Dressing Dry and Intact, No Drainage Neurological: No New Focal Deficit Psy/Mental Status: Alert, Normal Affect, Normal Mood - Problem List & Annotations (1) Shoulder fracture, right SNOMED Code(s): 72438101737829538, [id number] Code(s): S42.91XA - FRACTURE OF RIGHT SHOULDER GIRDLE, PART UNSP, INIT Status: Acute Current Visit: Yes Qualifiers: Encounter type: initial encounter Fracture type: closed Qualified Code(s) : S42.91XA - Fracture of right shoulder girdle, part unspecified, initial encounter for closed fracture - Problem List Review Problem List Initiated/Reviewed/Updated: Yes - My Orders Last 24 Hours: My Active Orders 06/18/19 Lunch Consistent Carbohydrate Diet [DIET] - Plan Plan:: A: 88 yo female POD 2 Right reverse TSA P: DVT prophylaxis, pain control, PT, OT. Start PROM in 2 days. Remove VAC next Sunday or when pump turns off then replace dressing eod f/u three weeks
[2019-06-19] MEDS: Nitrofurantoin Monohydrate/Macrocrystalline 100 MG Cap PO SCH ×2 (10:39→20:37)
[2019-06-19] MEDS ORDERED: Dextrose 5%-0.45% NaCl 1,000 ML IV SCH (23:45)
[2019-06-19] MEDS ORDERED: 50% Dextrose in Water 50 ML Syringe IVPUSH ONE (23:56)
[2019-06-20] MEDS: Pantoprazole 40 MG Tab.CR PO SCH (07:08)
--- NOTE | 2019-06-20 08:35 | PCM.PN ---
- General Info Date of Service: 06/20/19 Subjective Update: Had hypoglycemia overnight. Pain is well controlled. Functional Status: Reports: Pain Controlled, Tolerating Diet - Review of Systems HEENT: Reports: No Symptoms Pulmonary: Reports: No Symptoms Cardiovascular: Reports: No Symptoms - Patient Data Vitals - Most Recent: Last Vital Signs Temp 99.3 F 06/20/19 04:00 Pulse 72 06/20/19 04:00 Resp 18 06/20/19 04:00 BP 110/45 L 06/20/19 04:00 Pulse Ox 96 06/20/19 04:00 Weight - Most Recent: 68.946 kg I&O - Last 24 Hours: Intake & Output 06/19/19 06/20/19 06/20/19 22:59 06:59 14:59 Intake Total 150 Output Total 475 Balance -325 Lab Results Last 24 Hours: Laboratory Results - last 24 hr 06/18/19 06/18/19 06/19/19 Range/Units 17:21 20:48 05:41 POC Glucose 132 H 240 H D 113 D (80-116) mg/dL Lactic Acid (0.4-2.2) mmol/L Urine Color (YELLOW) Urine Appearance (CLEAR) Urine pH (5.0-6.5) Ur Specific Honor (1.010-1.025) Urine Protein (NEGATIVE) mg/dL Urine Glucose (UA) (NORMAL) mg/dL Urine Ketones (NEGATIVE) mg/dL Urine Occult Blood (NEGATIVE) Urine Nitrite (NEGATIVE) Urine Bilirubin (NEGATIVE) Urine Urobilinogen (NEGATIVE) mg/dL Ur Leukocyte Esterase (NEGATIVE) Urine RBC (0-5) Urine WBC (0-5) Ur Squamous Epith Cells (NS,R,O) Urine Bacteria (NS) 06/19/19 06/19/19 06/19/19 Range/Units 11:27 17:37 18:16 POC Glucose 141 H 44 L D 54 L (80-116) mg/dL Lactic Acid (0.4-2.2) mmol/L Urine Color (YELLOW) Urine Appearance (CLEAR) Urine pH (5.0-6.5) Ur Specific Honor (1.010-1.025) Urine Protein (NEGATIVE) mg/dL Urine Glucose (UA) (NORMAL) mg/dL Urine Ketones (NEGATIVE) mg/dL Urine Occult Blood (NEGATIVE) Urine Nitrite (NEGATIVE) Urine Bilirubin (NEGATIVE) Urine Urobilinogen (NEGATIVE) mg/dL Ur Leukocyte Esterase (NEGATIVE) Urine RBC (0-5) Urine WBC (0-5) Ur Squamous Epith Cells (NS,R,O) Urine Bacteria (NS) 06/19/19 06/19/19 06/19/19 Range/Units 18:37 20:03 23:41 POC Glucose 70 L 68 L 49 L (80-116) mg/dL Lactic Acid (0.4-2.2) mmol/L Urine Color (YELLOW) Urine Appearance (CLEAR) Urine pH (5.0-6.5) Ur Specific Honor (1.010-1.025) Urine Protein (NEGATIVE) mg/dL Urine Glucose (UA) (NORMAL) mg/dL Urine Ketones (NEGATIVE) mg/dL Urine Occult Blood (NEGATIVE) Urine Nitrite (NEGATIVE) Urine Bilirubin (NEGATIVE) Urine Urobilinogen (NEGATIVE) mg/dL Ur Leukocyte Esterase (NEGATIVE) Urine RBC (0-5) Urine WBC (0-5) Ur Squamous Epith Cells (NS,R,O) Urine Bacteria (NS) 06/20/19 06/20/19 06/20/19 Range/Units 00:08 02:00 03:55 POC Glucose 84 (80-116) mg/dL Lactic Acid 2.0 (0.4-2.2) mmol/L Urine Color Yellow (YELLOW) Urine Appearance Clear (CLEAR) Urine pH 5.0 (5.0-6.5) Ur Specific [place] 1.010 (1.010-1.025) Urine Protein Negative (NEGATIVE) mg/dL Urine Glucose (UA) 100 H (NORMAL) mg/dL Urine Ketones 15 H (NEGATIVE) mg/dL Urine Occult Blood Negative (NEGATIVE) Urine Nitrite Negative (NEGATIVE) Urine Bilirubin Negative (NEGATIVE) Urine Urobilinogen 4 H (NEGATIVE) mg/dL Ur Leukocyte Esterase Moderate H (NEGATIVE) Urine RBC 0-5 (0-5) Urine WBC 5-10 H (0-5) Ur Squamous Epith Cells Few H (NS,R,O) Urine Bacteria Few H (NS) 06/20/19 Range/Units 06:26 POC Glucose 70 L (80-116) mg/dL Lactic Acid (0.4-2.2) mmol/L Urine Color (YELLOW) Urine Appearance (CLEAR) Urine pH (5.0-6.5) Ur Specific Honor (1.010-1.025) Urine Protein (NEGATIVE) mg/dL Urine Glucose (UA) (NORMAL) mg/dL Urine Ketones (NEGATIVE) mg/dL Urine Occult Blood (NEGATIVE) Urine Nitrite (NEGATIVE) Urine Bilirubin (NEGATIVE) Urine Urobilinogen (NEGATIVE) mg/dL Ur Leukocyte Esterase (NEGATIVE) Urine RBC (0-5) Urine WBC (0-5) Ur Squamous Epith Cells (NS,R,O) Urine Bacteria (NS) Med Orders - Current: Current Medications Acetaminophen (Tylenol) 650 mg PO Q4H PRN PRN Reason: Pain Last Admin: 06/19/19 08:11 Dose: 650 mg Hydrocodone Bitart/Acetaminophen ([place] 325-5 Mg) 1 tab PO Q4H PRN PRN Reason: Pain (moderate 4-6) Hydrocodone Bitart/Acetaminophen ([place] 325-5 Mg) 2 tab PO Q4H PRN PRN Reason: severe pain Artificial Tears (Liquitears 1.4% Ophth Soln) 0 ml EYEBOTH ASDIRECTED PRN PRN Reason: DRY EYES Aspirin (Ecotrin) 325 mg PO DAILY ON LICENSE OF [facility] Last Admin: 06/19/19 08:11 Dose: 325 mg Ropivacaine 49.25 ml/Epinephrine HCl 0.5 mg/Clonidine HCl 80 mcg/ Sodium Chloride 49.45 ml 0 ml INJECT ASDIRECTED ON LICENSE OF [facility] Last Admin: 06/17/19 13:10 Dose: 100 syringe Heparin Sodium (Porcine) (Heparin Lock Flush 100 Units/Ml) 500 units FLUSH ASDIRECTED PRN PRN Reason: Keep Vein Open Last Admin: 06/17/19 12:14 Dose: 500 units Morphine Sulfate (Morphine) 2 mg IVPUSH Q2H PRN PRN Reason: Pain Last Admin: 06/18/19 10:10 Dose: 2 mg Morphine Sulfate (Morphine) 6 mg SUBCUT Q4H PRN PRN Reason: Pain Nitrofurantoin Macrocrystals (Macrobid) 100 mg PO BID ON LICENSE OF [facility] Last Admin: 06/19/19 20:37 Dose: 100 mg Pantoprazole Sodium (Protonix) 40 mg PO 0600 ON LICENSE OF [facility] Last Admin: 06/20/19 07:08 Dose: 40 mg Sodium Chloride (Saline Flush) 10 ml FLUSH ASDIRECTED PRN PRN Reason: Keep Vein Open Last Admin: 06/17/19 05:46 Dose: 10 ml Discontinued Medications Acetaminophen (Tylenol Extra Strength) 1,000 mg PO ONETIME ONE Stop: 06/17/19 11:31 Last Admin: 06/17/19 13:08 Dose: Not Given Hydrocodone Bitart/Acetaminophen ([place] 325-5 Mg) 1 tab PO ONETIME ONE Stop: 06/16/19 10:05 Last Admin: 06/16/19 10:08 Dose: 1 tab Ceftriaxone Sodium (Rocephin) 1 gm IVPUSH Q24H ON LICENSE OF [facility] Last Admin: 06/18/19 05:43 Dose: 1 gm Tranexamic Acid 3,000 mg/ (Sodium Chloride 100 ml) 0 mg IRR ONETIME ONE Stop: 06/17/19 13:01 Last Admin: 06/17/19 13:11 Dose: 100 irr Dextrose/Water (Dextrose 50% In Water) 50 ml IVPUSH ONETIME ONE Stop: 06/19/19 23:57 Last Admin: 06/20/19 00:11 Dose: 50 ml Gabapentin (Neurontin) 300 mg PO ONETIME ONE Stop: 06/17/19 11:31 Last Admin: 06/17/19 13:08 Dose: Not Given Glimepiride (Amaryl) 2 mg PO WITHBREAKFAST ON LICENSE OF [facility] Last Admin: 06/19/19 08:11 Dose: 2 mg Clindamycin/Sodium Chloride (Cleocin In Ns) 900 mg in 50 mls @ 100 mls/hr IV ONETIME ONE Stop: 06/17/19 12:59 Last Admin: 06/17/19 11:55 Dose: 100 mls/hr Lactated Ringer's (Ringers, Lactated) 1,000 mls @ 125 mls/hr IV ASDIRECTED ON LICENSE OF [facility] Lactated Ringer's (Ringers, Lactated) 1,000 mls @ 150 mls/hr IV ASDIRECTED ON LICENSE OF [facility] Last Admin: 06/18/19 06:15 Dose: 150 mls/hr Clindamycin/Sodium Chloride (Cleocin In Ns) 600 mg in 50 mls @ 100 mls/hr IV Q8H ON LICENSE OF [facility] Stop: 06/18/19 04:29 Last Admin: 06/18/19 04:21 Dose: 100 mls/hr Dextrose/Sodium Chloride (Dextrose 5%-1/2 Ns) 1,000 mls @ 125 mls/hr IV ASDIRECTED ON LICENSE OF [facility] Last Admin: 06/20/19 00:11 Dose: 125 mls/hr Pantoprazole Sodium (Protonix) 40 mg PO BID@0600,2100 ON LICENSE OF [facility] Last Admin: 06/18/19 05:49 Dose: 40 mg Scopolamine (Transderm-Scop) 1.5 mg TRDERM ONETIME ONE Stop: 06/17/19 11:31 Last Admin: 06/17/19 13:07 Dose: Not Given Sodium Chloride (Saline Flush) 10 ml FLUSH ASDIRECTED PRN PRN Reason: Keep Vein Open Last Admin: 06/18/19 05:45 Dose: 10 ml - Exam General: Alert, Oriented HEENT: Pupils Equal Neck: Supple Neurological: No New Focal Deficit Psy/Mental Status: Alert, Normal Affect, Normal Mood - Problem List & Annotations (1) Hypoglycemia SNOMED Code(s): 785965903 Code(s): E16.2 - HYPOGLYCEMIA, UNSPECIFIED Status: Acute Current Visit: Yes (2) Type 2 diabetes mellitus SNOMED Code(s): 07334105 Code(s): E11.9 - TYPE 2 DIABETES MELLITUS WITHOUT COMPLICATIONS Status: Acute Current Visit: Yes Qualifiers: Diabetes mellitus terminal 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 insulin use: with terminal 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 use (3) UTI (urinary tract infection) SNOMED Code(s): 99886497 Code(s): N39.0 - URINARY TRACT INFECTION, SITE NOT SPECIFIED Status: Acute Current Visit: Yes Qualifiers: Urinary tract infection type: acute cystitis (4) Shoulder fracture, right SNOMED Code(s): 91383234423193701, 39261854858304006 Code(s): S42.91XA - FRACTURE OF RIGHT SHOULDER GIRDLE, PART UNSP, INIT Status: Acute Current Visit: Yes Qualifiers: Encounter type: initial encounter Fracture type: closed Qualified Code(s) : S42.91XA - Fracture of right shoulder girdle, part unspecified, initial encounter for closed fracture - Problem List Review Problem List Initiated/Reviewed/Updated: Yes - Plan Plan:: Posp op day #3. Continue therapy,may discharge home tomorrow when [facility] are ready.DC IVF today. Check A 1c.
[2019-06-20] MEDS: Aspirin 325 MG Tab.EC PO SCH (09:02)
[2019-06-20] MEDS: Nitrofurantoin Monohydrate/Macrocrystalline 100 MG Cap PO SCH ×2 (09:03→20:18)
[2019-06-20] MEDS: Acetaminophen 325 MG Tab PO PRN (09:14)
[2019-06-20 09:45] LABS: HEMOGLOBIN A1C 6.2 % (4.5-6.2)
[2019-06-20] MEDS: Sodium Chloride 0.9% 10 ML Syringe FLUSH PRN (14:43)
[2019-06-21] MEDS: Pantoprazole 40 MG Tab.CR PO SCH (06:17)
[2019-06-21] MEDS: Nitrofurantoin Monohydrate/Macrocrystalline 100 MG Cap PO SCH (09:18)
[2019-06-21] MEDS: Aspirin 325 MG Tab.EC PO SCH (09:25)
--- NOTE | 2019-06-21 09:27 | PCM.PN ---
- General Info Date of Service: 06/21/19 Admission Dx/Problem (Free Text): Admission Diagnosis/Problem Admission Diagnosis/Problem Shoulder injury Subjective Update: Had no problems overnight. Pain is well controlled. Functional Status: Reports: Pain Controlled, Tolerating Diet - Review of Systems General: Reports: No Symptoms HEENT: Reports: No Symptoms Pulmonary: Reports: No Symptoms Cardiovascular: Reports: No Symptoms Gastrointestinal: Reports: No Symptoms Genitourinary: Reports: No Symptoms Musculoskeletal: Reports: No Symptoms - Patient Data Vitals - Most Recent: Last Vital Signs Temp 98 F 06/21/19 07:53 Pulse 88 06/21/19 07:53 Resp 16 06/21/19 07:53 BP 110/45 L 06/21/19 07:53 Pulse Ox 97 06/21/19 07:53 Weight - Most Recent: 68.946 kg Lab Results Last 24 Hours: Laboratory Results - last 24 hr 06/20/19 06/20/19 06/20/19 Range/Units 09:20 09:20 09:20 WBC 9.8 (4.5-12.0) X10-3/uL RBC 2.91 L (3.23-5.20) x10(6)uL Hgb 8.8 L (11.5-15.5) g/dL Hct 26.0 L (30.0-51.3) % MCV 89.1 (80-96) fL MCH 30.1 (27.7-33.6) pg MCHC 33.8 (32.2-35.4) g/dL RDW 13.7 (11.5-15.5) % Plt Count 212 (125-369) X10(3)uL MPV 7.8 (7.4-10.4) fL Neut % (Auto) 86.9 H (46-82) % Lymph % (Auto) 5.7 L (13-37) % [place] % (Auto) 4.8 (4-12) % Eos % (Auto) 2 (1.0-5.0) % Baso % (Auto) 0 (0-2) % Neut # (Auto) 8.5 H (1.6-8.3) # Lymph # (Auto) 0.6 (0.6-5.0) # [place] # (Auto) 0.5 (0.0-1.3) # Eos # (Auto) 0.2 (0.0-0.8) # Baso # (Auto) 0.0 (0.0-0.2) # Sodium 138 (135-145) mmol/L Potassium 3.9 (3.5-5.3) mmol/L Chloride 103 (100-110) mmol/L Carbon Dioxide 25 (21-32) mmol/L BUN 19 H (7-18) mg/dL Creatinine 0.8 (0.55-1.02) mg/dL Est Cr Clr Drug Dosing 37.38 mL/min Estimated GFR (MDRD) > 60 (>60) BUN/Creatinine Ratio 23.8 H (9-20) Glucose 101 (80-116) mg/dL POC Glucose (80-116) mg/dL Hemoglobin A1c 6.2 (4.5-6.2) % Calcium 8.4 L (8.6-10.2) mg/dL 06/20/19 06/20/19 06/20/19 Range/Units 11:39 17:20 20:21 WBC (4.5-12.0) X10-3/uL RBC (3.23-5.20) x10(6)uL Hgb (11.5-15.5) g/dL Hct (30.0-51.3) % MCV (80-96) fL MCH (27.7-33.6) pg MCHC (32.2-35.4) g/dL RDW (11.5-15.5) % Plt Count (125-369) X10(3)uL MPV (7.4-10.4) fL Neut % (Auto) (46-82) % Lymph % (Auto) (13-37) % [place] % (Auto) (4-12) % Eos % (Auto) (1.0-5.0) % Baso % (Auto) (0-2) % Neut # (Auto) (1.6-8.3) # Lymph # (Auto) (0.6-5.0) # [place] # (Auto) (0.0-1.3) # Eos # (Auto) (0.0-0.8) # Baso # (Auto) (0.0-0.2) # Sodium (135-145) mmol/L Potassium (3.5-5.3) mmol/L Chloride (100-110) mmol/L Carbon Dioxide (21-32) mmol/L BUN (7-18) mg/dL Creatinine (0.55-1.02) mg/dL Est Cr Clr Drug Dosing mL/min Estimated GFR (MDRD) (>60) BUN/Creatinine Ratio (9-20) Glucose (80-116) mg/dL POC Glucose 113 113 156 H (80-116) mg/dL Hemoglobin A1c (4.5-6.2) % Calcium (8.6-10.2) mg/dL 06/21/19 Range/Units 06:20 WBC (4.5-12.0) X10-3/uL RBC (3.23-5.20) x10(6)uL Hgb (11.5-15.5) g/dL Hct (30.0-51.3) % MCV (80-96) fL MCH (27.7-33.6) pg MCHC (32.2-35.4) g/dL RDW (11.5-15.5) % Plt Count (125-369) X10(3)uL MPV (7.4-10.4) fL Neut % (Auto) (46-82) % Lymph % (Auto) (13-37) % [place] % (Auto) (4-12) % Eos % (Auto) (1.0-5.0) % Baso % (Auto) (0-2) % Neut # (Auto) (1.6-8.3) # Lymph # (Auto) (0.6-5.0) # [place] # (Auto) (0.0-1.3) # Eos # (Auto) (0.0-0.8) # Baso # (Auto) (0.0-0.2) # Sodium (135-145) mmol/L Potassium (3.5-5.3) mmol/L Chloride (100-110) mmol/L Carbon Dioxide (21-32) mmol/L BUN (7-18) mg/dL Creatinine (0.55-1.02) mg/dL Est Cr Clr Drug Dosing mL/min Estimated GFR (MDRD) (>60) BUN/Creatinine Ratio (9-20) Glucose (80-116) mg/dL POC Glucose 111 (80-116) mg/dL Hemoglobin A1c (4.5-6.2) % Calcium (8.6-10.2) mg/dL Med Orders - Current: Current Medications Acetaminophen (Tylenol) 650 mg PO Q4H PRN PRN Reason: Pain Last Admin: 06/20/19 09:14 Dose: 650 mg Hydrocodone Bitart/Acetaminophen ([place] 325-5 Mg) 1 tab PO Q4H PRN PRN Reason: Pain (moderate 4-6) Hydrocodone Bitart/Acetaminophen ([place] 325-5 Mg) 2 tab PO Q4H PRN PRN Reason: severe pain Artificial Tears (Liquitears 1.4% Ophth Soln) 0 ml EYEBOTH ASDIRECTED PRN PRN Reason: DRY EYES Aspirin (Ecotrin) 325 mg PO DAILY [facility] Last Admin: 06/20/19 09:02 Dose: 325 mg Heparin Sodium (Porcine) (Heparin Lock Flush 100 Units/Ml) 500 units FLUSH ASDIRECTED PRN PRN Reason: Keep Vein Open Last Admin: 06/17/19 12:14 Dose: 500 units Morphine Sulfate (Morphine) 2 mg IVPUSH Q2H PRN PRN Reason: Pain Last Admin: 06/18/19 10:10 Dose: 2 mg Morphine Sulfate (Morphine) 6 mg SUBCUT Q4H PRN PRN Reason: Pain Nitrofurantoin Macrocrystals (Macrobid) 100 mg PO BID [facility] Last Admin: 06/21/19 09:18 Dose: 100 mg Pantoprazole Sodium (Protonix) 40 mg PO 0600 [facility] Last Admin: 06/21/19 06:17 Dose: 40 mg Sodium Chloride (Saline Flush) 10 ml FLUSH ASDIRECTED PRN PRN Reason: Keep Vein Open Last Admin: 06/20/19 14:43 Dose: 10 ml Discontinued Medications Acetaminophen (Tylenol Extra Strength) 1,000 mg PO ONETIME ONE Stop: 06/17/19 11:31 Last Admin: 06/17/19 13:08 Dose: Not Given Hydrocodone Bitart/Acetaminophen ([place] 325-5 Mg) 1 tab PO ONETIME ONE Stop: 06/16/19 10:05 Last Admin: 06/16/19 10:08 Dose: 1 tab Ceftriaxone Sodium (Rocephin) 1 gm IVPUSH Q24H [facility] Last Admin: 06/18/19 05:43 Dose: 1 gm Tranexamic Acid 3,000 mg/ (Sodium Chloride 100 ml) 0 mg IRR ONETIME ONE Stop: 06/17/19 13:01 Last Admin: 06/17/19 13:11 Dose: 100 irr Ropivacaine 49.25 ml/Epinephrine HCl 0.5 mg/Clonidine HCl 80 mcg/ Sodium Chloride 49.45 ml 0 ml INJECT ASDIRECTED [facility] Last Admin: 06/17/19 13:10 Dose: 100 syringe Dextrose/Water (Dextrose 50% In Water) 50 ml IVPUSH ONETIME ONE Stop: 06/19/19 23:57 Last Admin: 06/20/19 00:11 Dose: 50 ml Gabapentin (Neurontin) 300 mg PO ONETIME ONE Stop: 06/17/19 11:31 Last Admin: 06/17/19 13:08 Dose: Not Given Glimepiride (Amaryl) 2 mg PO WITHBREAKFAST [facility] Last Admin: 06/19/19 08:11 Dose: 2 mg Clindamycin/Sodium Chloride (Cleocin In Ns) 900 mg in 50 mls @ 100 mls/hr IV ONETIME ONE Stop: 06/17/19 12:59 Last Admin: 06/17/19 11:55 Dose: 100 mls/hr Lactated Ringer's (Ringers, Lactated) 1,000 mls @ 125 mls/hr IV ASDIRECTED [facility] Lactated Ringer's (Ringers, Lactated) 1,000 mls @ 150 mls/hr IV ASDIRECTED [facility] Last Admin: 06/18/19 06:15 Dose: 150 mls/hr Clindamycin/Sodium Chloride (Cleocin In Ns) 600 mg in 50 mls @ 100 mls/hr IV Q8H [facility] Stop: 06/18/19 04:29 Last Admin: 06/18/19 04:21 Dose: 100 mls/hr Dextrose/Sodium Chloride (Dextrose 5%-1/2 Ns) 1,000 mls @ 125 mls/hr IV ASDIRECTED [facility] Last Admin: 06/20/19 00:11 Dose: 125 mls/hr Pantoprazole Sodium (Protonix) 40 mg PO BID@0600,2100 [facility] Last Admin: 06/18/19 05:49 Dose: 40 mg Scopolamine (Transderm-Scop) 1.5 mg TRDERM ONETIME ONE Stop: 06/17/19 11:31 Last Admin: 06/17/19 13:07 Dose: Not Given Sodium Chloride (Saline Flush) 10 ml FLUSH ASDIRECTED PRN PRN Reason: Keep Vein Open Last Admin: 06/18/19 05:45 Dose: 10 ml - Exam General: Alert HEENT: Pupils Equal Neck: Supple Extremities: No Pedal Edema - Problem List & Annotations (1) Hypoglycemia SNOMED Code(s): 509010311 Code(s): E16.2 - HYPOGLYCEMIA, UNSPECIFIED Status: Acute Current Visit: Yes (2) Type 2 diabetes mellitus SNOMED Code(s): 80746472 Code(s): E11.9 - TYPE 2 DIABETES MELLITUS WITHOUT COMPLICATIONS Status: Acute Current Visit: Yes Qualifiers: Diabetes mellitus prison insulin use: with prison use (3) UTI (urinary tract infection) SNOMED Code(s): 52730845 Code(s): N39.0 - URINARY TRACT INFECTION, SITE NOT SPECIFIED Status: Acute Current Visit: Yes Qualifiers: Urinary tract infection type: acute cystitis (4) Shoulder fracture, right SNOMED Code(s): 37765693483666828, [id number] Code(s): S42.91XA - FRACTURE OF RIGHT SHOULDER GIRDLE, PART UNSP, INIT Status: Acute Current Visit: Yes Qualifiers: Encounter type: initial encounter Fracture type: closed Qualified Code(s) : S42.91XA - Fracture of right shoulder girdle, part unspecified, initial encounter for closed fracture (5) Anemia SNOMED Code(s): 535747136 Code(s): D64.9 - ANEMIA, UNSPECIFIED Status: Acute Current Visit: Yes - Problem List Review Problem List Initiated/Reviewed/Updated: Yes - Plan Plan:: Posp op day #4. May discharge home today
--- NOTE | 2019-06-21 12:03 | DISCH ---
DISCHARGE DATE: 06/21/2019 REASON FOR ADMISSION: Shoulder fracture. DISCHARGE DIAGNOSES: 1. Shoulder fracture, status post internal fixation, right. 2. Type 2 diabetes. 3. Anemia. 4. Urinary tract infection. 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 Vega on the , after surgery she did very well and has been going through physical therapy. Her pain is controlled with Tylenol. She did develop a urinary tract infection and she was put on Macrobid. She is discharged today on Tylenol p.r.n., may use hydrocodone as needed for pain control. Also sent her home on 325 mg ferrous sulfate b.i.d. and her home prescription of Amaryl for type 2 diabetes. She will continue with home health and physical and occupational therapy and also has a followup with Dr. Vega in 3 weeks. Please note that I spent more than 35 minutes in the discharge of the patient. /[id number] ERLIN/BRIANA
--- NOTE | 2019-06-23 14:37 | CR ---
INDICATION: Shoulder arthroplasty. C-ARM FLUOROSCOPY IN OR, UP TO 1 HOUR: 0.1 minute C-arm fluoroscopy time was utilized in OR during right shoulder arthroplasty. There images were obtained, and detail was somewhat limited with no definite complicating process suggested and a reverse shoulder arthroplasty noted in place with appearance of adequate position and alignment suggested. MTDD
--- NOTE | 2019-06-30 17:29 | OR ---
DATE OF OPERATION: 06/17/2019 SURGEON: Glen Vega DO PREOPERATIVE DIAGNOSIS: Right proximal humerus fracture, comminuted, displaced, closed. POSTOPERATIVE DIAGNOSIS: Right proximal humerus fracture, comminuted, displaced, closed. PROCEDURE: Right reverse total shoulder arthroplasty. ANESTHESIA: Cindy Tyler CRNA, general endotracheal intubation plus regional block. FLUID: Lactated Ringer's solution. ESTIMATED BLOOD LOSS: 200 mL. COMPLICATIONS: None. SPECIMEN: None. DISCHARGE DISPOSITION: Stable to PACU. INSTRUMENTATION: [place] reverse total shoulder arthroplasty. INDICATIONS FOR THE PROCEDURE: The patient was admitted 2 days prior to the procedure after a fall. She was seen in the emergency department by Dr. Polanco. She was found to have a proximal humerus fracture and she was admitted at that time. I evaluated the patient and explained the risks and benefits of the procedure to the patient as well as calling one of her family members. Informed consent was obtained. DETAILS OF PROCEDURE: The patient was seen preoperatively by myself, anesthesia staff in the preoperative holding area where the operative site was marked and brought to the preop holding area, where a regional block was performed in the interscalene area. She was then brought to the operative suite where general anesthesia was administered. She was placed into a beach chair position. All extremities found to be well padded. The right upper extremity was then prepped and draped in a sterile manner. Time-out was called identifying the correct patient, correct procedure, the correct site and the antibiotics had been within appropriate period of time. Please note that she did have a port in from previous chemotherapy. We took great care to protect the port by placing multiple Tegaderms over the area. The incision was made from the coracoid down to the axillary fold. Bleeding during the case was controlled with Bovie electrocautery. The cephalic vein was tied off with 2-0 Vicryl and divided. The deltopectoral interval was identified, and I went through this bluntly with a finger. I then identified the clavipectoral fascia and identified the insertion of the pectoralis major onto the humerus. I then released the superior 1 cm of the pectoralis major. I then mobilized any adhesions under the deltoid and then placed a Mcadams deltoid retractor. I then went through the capsule. There was a significant amount of hematoma and actually most of the blood loss came from the hematoma during the case. The head had been impacted and displaced. This was removed in 2 parts. The subscapularis had been torn off at its musculotendinous junction and was not repairable. The rotator cuff was no longer present as well. After removing the head, I then placed my guide for my neck cut, but certainly there was no need as the fracture was certainly inferior to this and there was significant bone loss. I did take off a portion of the posterior cortex of the humerus with a saw. I then used a canal finder and then sequentially reamed up to a 12 stem and then I started broaching again low and then went up to a 12 as well. After this had been completed, I then removed my stem and then focused on the glenoid exposure. I placed a Batman and Oswaldo type retractors posterior to the glenoid and one Hohmann inferior and anterior. I then removed the glenoid labrum using both a knife and cautery. After that had been accomplished, I then used the guide and then drilled my K- wire into the glenoid. I then removed the guide and then used a 28 mm reamer, which was a half-freeman. This actually did very well and removing the inferior half of the glenoid room providing bleeding bone in the inferior half I thought it was a good location as well. After that had been accomplished, I then reamed from my central PEG and then after that had been performed, I placed my final implant and then drilled 3 holes and placed those screws, one was a 6.5 x 28, the other was a 4.5 x 24 mm and another 4.5 x 24 mm. The final implant was a 32 fit. I then trialed with my broach. I was having a little bit of problems because it was very tight and would externally rotate as we took it back out and dislocated it. Finally, settled on a 12 with 32 mm x 4 mm glenoid component. This provided excellent stability throughout range of motion. We then inserted my final implants. We copiously irrigated with saline including Betadine infused irrigation. I also applied TXA during the procedure and then at the end of the procedure and then local anesthetic infiltration. We then closed the deltopectoral interval as best we could in a watertight manner using #1 Stratafix. I then irrigated again with Betadine infused irrigation and then applied and then closed the subcutaneous layer with #1 Stratafix and then finally the skin closure with 3-0 Stratafix. We then applied a 13 cm Prevena wound VAC over the area and then and then applied another Tegaderm over the port. The patient was then allowed to awaken from general anesthesia and taken to the PACU in stable condition. /[id number] BS/MODL
== END 2019-06-21 12:35 | disposition home health service (06) | DRG 315 ==
LOC: FB.ED 09:36 → FB.MS 12:23
PROVIDERS: ADMIT Family Medicine; ATTEND Family Medicine
PROC: 0RRJ00Z Replacement of Right Shoulder Joint with Reverse Ball and Socket Synthetic Substitute, Open Approach (ICD-10-PCS; principal; 2019-06-17)
PROC: 3E0T3BZ Introduction of Anesthetic Agent into Peripheral Nerves and Plexi, Percutaneous Approach (ICD-10-PCS; 2019-06-17)
DX: S42.201A Unspecified fracture of upper end of right humerus, initial encounter for closed fracture (principal); W18.39XA Other fall on same level, initial encounter; E11.65 Type 2 diabetes mellitus with hyperglycemia; Z79.84 Long term (current) use of oral hypoglycemic drugs; M19.90 Unspecified osteoarthritis, unspecified site; H54.7 Unspecified visual loss; H91.90 Unspecified hearing loss, unspecified ear; H26.9 Unspecified cataract; H35.30 Unspecified macular degeneration; Z85.01 Personal history of malignant neoplasm of esophagus; G89.18 Other acute postprocedural pain; N39.0 Urinary tract infection, site not specified; D64.9 Anemia, unspecified; Z88.0 Allergy status to penicillin; Z88.5 Allergy status to narcotic agent; Z88.8 Allergy status to other drugs, medicaments and biological substances; Z79.899 Other long term (current) drug therapy
CPT/HCPCS: 36415; 70450; 71045; 72125; 73020-RT; 73200-RT; 76000; 80048; 81001; 82550; 82962; 83036; 83605; 84484; 85025; 86850; 86900; 86901; 87086; 87088; 87186; 93005; 97110-GO; 97166-GO; 97530-GO; 97535-GO; 99285-25; A4216; A9270-GY; C1713; C1776; J0171; J0330; J0696; J0735; J1642; J2001; J2250; J2270; J2370; J2704; J2795; J3010; J3490; J7030; J7050; J7060; J7120

== ENCOUNTER 2019-09-25 06:37 | Day surgery (SDC) | payer BC ==
[2019-09-25] MEDS ORDERED: Clindamycin in 0.9 % Sod Chlor 600 MG/50 ML BAG IV ONE (06:38)
[2019-09-25] MEDS ORDERED: Propofol 200 MG/20 ML SDV IV ONE (06:38)
[2019-09-25] MEDS ORDERED: Ketamine 500 mg/10 ML MDV IV ONE (06:38)
[2019-09-25] MEDS ORDERED: Midazolam 1 MG/ML 2 ML SDV IV ONE (06:38)
[2019-09-25] MEDS ORDERED: fentaNYL 100 MCG/2 ML SDV IV ONE (06:38)
[2019-09-25] MEDS ORDERED: Sodium Chloride 0.9% 10 ML Syringe FLUSH PRN (06:45)
[2019-09-25] MEDS ORDERED: Lactated Ringers 1,000 ML IV SCH (06:45)
[2019-09-25] MEDS ORDERED: Bupivacaine 0.5% 30 ML SDV INJECT ONE (08:22)
[2019-09-25] MEDS ORDERED: Dexamethasone 4 MG/ML SDV INJECT ONE (08:22)
--- NOTE | 2019-09-25 08:40 | PCM.OPNOTE ---
- General Post-Op/Procedure Note Date of Surgery/Procedure: 09/25/19 Operative Procedure(s): right carpal tunnel release Pre Op Diagnosis: right carpal tunnel syndrome Post-Op Diagnosis: Same Anesthesia Technique: Local, Moderate Sedation Primary Surgeon: Glen Vega Clinical Fellow: Cassie Palomino EBL in mLs: 5 Complications: None Condition: Good
[2019-09-25] MEDS ORDERED: Acetaminophen/HYDROcodone 325-5 MG Tab PO PRN (08:47)
--- NOTE | 2019-09-25 09:58 | OR ---
DATE OF OPERATION: 09/25/2019 SURGEON: Glen Vega DO PREOPERATIVE DIAGNOSIS: Right carpal tunnel syndrome. POSTOPERATIVE DIAGNOSIS: Right carpal tunnel syndrome. PROCEDURE: Right carpal tunnel release. PIE ICER MACHINE: Cassie Palomino NP. Nurse practitioner, Cassie Palomino NP, played an essential role in assisting in this case, helping to position the patient, retract structures as needed, as well as suturing and cutting sutures as indicated. Her presence improved patient's safety and decreased operative time. ANESTHESIA: Conscious sedation plus local. ESTIMATED BLOOD LOSS: 5 mL. FLUID: Lactated Ringer solution. COMPLICATIONS: None. SPECIMEN: None. DISCHARGE DISPOSITION: Stable to PACU. HISTORY AND INDICATIONS FOR PROCEDURE: The patient is well known to me. She had previously undergone a right reverse total shoulder arthroplasty secondary to trauma. After that, she had minimal use of her deltoid. We obtained an EMG, which showed a generalized brachial plexopathy as well as severe compression of the median nerve at the wrist. Risks and benefits of the procedure were explained to the patient. Informed consent was obtained. DETAILS OF PROCEDURE: The patient was seen preoperatively both myself and the Anesthesia staff in the preoperative holding area where the operative site was marked. She was brought to the operative suite by the Anesthesia staff where conscious sedation was administered. A well-padded tourniquet was placed on her right forearm. The right upper extremity was then prepped and draped in a sterile manner. Time-out was called identifying the correct patient, correct procedure, and the correct site and antibiotics had begun within appropriate period of time. An incision was made starting in line proximal to Tapia's cardinal line in line with the first metacarpal and then it was extended proximally about 1.5 cm in line with the radial border of the ring finger. This was incised with a 15 blade after applying local anesthetic at the incision site and along the area of the incision of the transverse carpal ligament as well as the deep palmar fascia proximally and distally. After the initial incision, I used a self-retaining retractor. We did have little bit of difficulty with visualization due to the tendon, but I was able to move that out of the way and incised the transverse carpal ligament. The median nerve was visualized. I then used a Ragnell and then some fine tenotomy scissors and went underneath and above deep palmar fascia proximally and distally to the transverse carpal ligament. I then slit my tenotomies through the deep palmar fascia proximally and distally under direct visualization using Ragnell. After this had been accomplished and I examined that the median nerve had been freed proximally and distally as well as the transverse carpal ligament, I then applied little bit more local and then padded that dry with a sponge and then applied a few drops of dexamethasone. I then closed with 2 horizontal mattress sutures, which were 3-0 nylon. The tourniquet was let down at 9 minutes. There was minimal bleeding after the tourniquet was let down. I then applied a Betadine-soaked Adaptic sponges and an Lyle wrap. The patient was then allowed to awaken from conscious sedation and then taken to the recovery room in stable condition. /[id number] AGUSTIN/BRIANA
== END 2019-09-25 09:51 | disposition home or self-care (01) ==
LOC: FB.SDS 06:37
PROVIDERS: ATTEND Orthopaedic Surgery
DX: G56.01 Carpal tunnel syndrome, right upper limb (principal); E11.9 Type 2 diabetes mellitus without complications; K21.9 Gastro-esophageal reflux disease without esophagitis; M15.9 Polyosteoarthritis, unspecified; Z88.0 Allergy status to penicillin; Z88.6 Allergy status to analgesic agent; Z88.8 Allergy status to other drugs, medicaments and biological substances; Z79.84 Long term (current) use of oral hypoglycemic drugs; Z79.899 Other long term (current) drug therapy
CPT/HCPCS: 82962; 94150; J1100; J2250; J2704; J3010; J3490; J7120

== ENCOUNTER 2021-07-12 13:41 | Inpatient (IN) | payer BC ==
[2021-07-12] MEDS ORDERED: Sodium Chloride 0.9% 10 ML Syringe FLUSH PRN (14:05)
[2021-07-12] MEDS ORDERED: Ondansetron 4 MG/2 ML SDV IVPUSH STA (14:07)
[2021-07-12] MEDS ORDERED: Sodium Chloride 0.9% 1,000 ML IV SCH (14:15)
[2021-07-12] MEDS ORDERED: Diatrizoate Meglumine/Diatrizoate Sodium 37% 30 ML Bottle PO ONE (16:31)
[2021-07-12] MEDS ORDERED: Iopamidol 755 Mg/ML 75 ML Bottle IV ONE (16:31)
--- NOTE | 2021-07-12 17:17 | EDM.PDOC ---
ED HPI GENERAL MEDICAL PROBLEM - General Chief Complaint: Abdominal Pain Stated Complaint: Constipation Time Seen by Provider: 07/12/21 13:50 Source of Information: Reports: Patient History Limitations: Reports: No Limitations - History of Present Illness INITIAL COMMENTS - FREE TEXT/NARRATIVE: Patient presented to the ED because of constipation for 2 weeks. She feels bloated and had nausea and vomiting x 1 last night. She said her nausea is better after vomiting. She was also diagnosed with UTI on 07/07 but didn't start taking her cipro 500 mg until this morning. She c/o mild abdominal pain over the LLQ and suprapubic area. There is no fever but has chills, no cough/cold. Lower Abdomen Pain Score (Numeric/FACES): 4 - Related Data Allergies Allergy/AdvReac Type Severity Reaction Status Date / Time atorvastatin [From Lipitor] Allergy Other Verified 07/12/21 14:51 codeine Allergy Stomach Verified 07/12/21 14:51 Upset ibuprofen Allergy Swelling Verified 07/12/21 14:51 Penicillins Allergy Itching Verified 07/12/21 14:51 Home Meds: Home Meds Pantoprazole Sodium [Protonix] 40 mg PO BID 06/16/19 [History] Folic Acid/Multivit-Min/Lutein [Multi-Vitamin Gummies] 1 each PO DAILY 09/25/19 [History] Acetaminophen 500 mg PO ASDIRECTED PRN 07/12/21 [History] Ciprofloxacin [Ciprofloxacin HCl] 250 mg PO BID 07/12/21 [History] Docusate Sodium [Colace] 100 mg PO Q48H 07/12/21 [History] Past Medical History HEENT History: Reports: Cataract, Hard of Hearing, Impaired Vision, Macular Degeneration Cardiovascular History: Reports: SOB on Exertion Respiratory History: Reports: None Gastrointestinal History: Reports: Jaundice Musculoskeletal History: Reports: Arthritis Neurological History: Reports: None Psychiatric History: Reports: None Endocrine/Metabolic History: Reports: Diabetes, Type II Hematologic History: Reports: None Immunologic History: Reports: None Oncologic (Cancer) History: Reports: Esophageal Dermatologic History: Reports: None - Infectious Disease History Infectious Disease History: Reports: Chicken Pox, Measles, Mumps - Past Surgical History HEENT Surgical History: Reports: Adenoidectomy, Tonsillectomy Cardiovascular Surgical History: Reports: None Respiratory Surgical History: Reports: None GI Surgical History: Reports: Appendectomy, Colonoscopy, EGD, Other (See Below) Other GI Surgeries/Procedures: PEG tube Female Surgical History: Reports: Hysterectomy, Other (See Below) Other Female Surgeries/Procedures: BREAST LUMPECTOMY Musculoskeletal Surgical History: Reports: Arthroscopic Procedure, Shoulder Surgery Oncologic Surgical History: Reports: None Social & Family History - Family History Family Medical History: No Pertinent Family History - Tobacco Use Tobacco Use Status *Q: Never Tobacco User - Caffeine Use Caffeine Use: Reports: Coffee - Recreational Drug Use Recreational Drug Use: No ED ROS GENERAL - Review of Systems Review Of Systems: See Below Constitutional: Reports: No Symptoms HEENT: Reports: No Symptoms Respiratory: Reports: No Symptoms Cardiovascular: Reports: No Symptoms Endocrine: Reports: No Symptoms GI/Abdominal: Reports: Abdominal Pain : Reports: No Symptoms Musculoskeletal: Reports: No Symptoms Skin: Reports: No Symptoms Neurological: Reports: No Symptoms ED EXAM, GI/ABD - Physical Exam Exam: See Below Exam Limited By: No Limitations General Appearance: Alert, No Apparent Distress Ears: Normal External Exam, Normal Canal Nose: Normal Inspection, Normal Mucosa, No Blood Throat/Mouth: Normal Inspection, Normal Lips, Normal Teeth Head: Atraumatic, Normocephalic Neck: Normal Inspection, Supple, Non-Tender, Full Range of Motion Respiratory/Chest: No Respiratory Distress, Lungs Clear, Normal Breath Sounds, No Accessory Muscle Use, Chest Non-Tender Cardiovascular: Normal Peripheral Pulses, Regular Rate, Rhythm, No Edema GI/Abdominal Exam: Normal Bowel Sounds, Soft, Other (tenderness LLQ and suprapubic area) Back Exam: Normal Inspection, Full Range of Motion Extremities: Normal Inspection, Normal Range of Motion, Non-Tender Neurological: Alert, Oriented, CN II-XII Intact Psychiatric: Normal Affect, Normal Mood Course - Vital Signs Text/Narrative:: Lab/CT abd-pelvis result was reviewed and discussed with patient NS 1 L bolus Refused Zofran Last Recorded V/S: Last Vital Signs Temp 36.8 C 07/12/21 17:00 Pulse 65 07/12/21 17:00 Resp 18 07/12/21 17:00 BP 123/61 07/12/21 17:00 Pulse Ox 98 07/12/21 17:00 - Orders/Labs/Meds Orders: Active Orders 24 hr Category Date Time Status Patient Status [ADT] Routine ADT 07/12/21 18:31 Active Antiembolic Devices [RC] .Routine Care 07/12/21 18:31 Active Oxygen Therapy [RC] PRN Care 07/12/21 18:31 Active Pulse Oximetry [RC] PRN Care 07/12/21 18:34 Active VTE/DVT Education [RC] Per Unit Routine Care 07/12/21 18:31 Active Vital Signs [RC] Q4H Care 07/12/21 18:31 Active Nothing per Oral Now Diet [DIET] Diet 07/12/21 Dinner Ordered Abdomen Pelvis w Cont [CT] Stat Exams 07/12/21 14:05 Taken BASIC METABOLIC PANEL,BMP [CHEM] Routine Lab 07/12/21 18:31 Ordered CBC WITH AUTO DIFF [HEME] AM Lab 07/13/21 05:11 Ordered CULTURE URINE [RM] Stat Lab 07/12/21 15:19 Received Ciprofloxacin in D5W [Cipro in D5W 400 MG/200 ML] 400 Med 07/12/21 21:00 Ordered mg Premix Bag 1 bag IV Q12HR Docusate Sodium/Sennosides [Senna Plus] Med 07/12/21 18:31 Active 1 tab PO BID PRN Enoxaparin [Lovenox] Med 07/12/21 20:00 Active 30 mg SUBCUT Q24H Ondansetron [Zofran] Med 07/12/21 18:00 Active 4 mg IVPUSH Q4H Pantoprazole [ProTONIX IV] Med 07/13/21 09:00 Active 40 mg IVPUSH DAILY Sodium Chloride 0.9% [Normal Saline] 1,000 ml Med 07/12/21 18:45 Active IV ASDIRECTED Sodium Chloride 0.9% [Saline Flush] Med 07/12/21 14:05 Active 10 ml FLUSH ASDIRECTED PRN Saline Lock Insert [OM.PC] Routine Oth 07/12/21 14:05 Ordered Sequential Compression Device [OM.PC] Per Unit Routine Oth 07/12/21 18:34 Ordered Resuscitation Status Routine Resus Stat 07/12/21 18:31 Ordered Medication Orders Enoxaparin Sodium (Enoxaparin 30 Mg/0.3 Ml Syringe) 30 mg SUBCUT Q24H JEFFREY Sodium Chloride (Normal Saline) 1,000 mls @ 125 mls/hr IV ASDIRECTED JEFFREY Ciprofloxacin/Dextrose 400 mg/ (Premix) 200 mls @ 200 mls/hr IV Q12HR JEFFREY Ondansetron HCl (Ondansetron 4 Mg/2 Ml Sdv) 4 mg IVPUSH Q4H JEFFREY Pantoprazole Sodium (Pantoprazole 40 Mg Vial) 40 mg IVPUSH DAILY JEFFREY Senna/Docusate Sodium (Docusate Sodium/Sennosides 50-8.6 Mg Tab) 1 tab PO BID PRN PRN Reason: Constipation Sodium Chloride (Sodium Chloride 0.9% 10 Ml Syringe) 10 ml FLUSH ASDIRECTED PRN PRN Reason: Keep Vein Open Labs: Laboratory Tests 07/12/21 07/12/21 07/12/21 Range/Units 14:25 14:25 14:25 WBC 9.5 (3.0-10.3) x10-3/uL RBC 3.59 L (3.60-5.20) x10(6)uL Hgb 10.4 L (11.4-15.5) g/dL Hct 31.6 L (34.2-48.2) % MCV 88.0 (76.7-100.5) fL MCH 29.0 (23.9-33.9) pg MCHC 32.9 (31.9-34.8) g/dL RDW 13.2 (12.3-16.5) % Plt Count 394 (151-488) x10(3)uL MPV 6.0 L (7.1-12.4) fL Neut % (Auto) 87.9 H (30.8-76.2) % Lymph % (Auto) 6.8 L (18.4-52.1) % [place] % (Auto) 4.1 L (4.4-15.7) % Eos % (Auto) 0.5 L (0.6-8.1) % Baso % (Auto) 0.7 (0.2-1.5) % Neut # (Auto) 8.4 H (1.5-6.3) x10-3/uL Lymph # (Auto) 0.6 L (1.0-4.4) x10-3/uL [place] # (Auto) 0.4 (0.3-1.0) x10-3/uL Eos # (Auto) 0.0 (0.0-0.8) x10-3/uL Baso # (Auto) 0.1 (0.0-0.1) x10-3/uL Sodium 142 (135-145) mmol/L Potassium 4.1 (3.5-5.3) mmol/L Chloride 105 (100-110) mmol/L Carbon Dioxide 25 (21-32) mmol/L BUN 21 H (7-18) mg/dL Creatinine 1.4 H (0.55-1.02) mg/dL Est Cr Clr Drug Dosing TNP Estimated GFR (MDRD) 35 L (>60) BUN/Creatinine Ratio 15.0 (9-20) Glucose 147 H (80-116) mg/dL Calcium 8.4 L (8.6-10.2) mg/dL Total Bilirubin 0.4 (0.1-1.3) mg/dL AST 12 (5-25) IU/L ALT 15 (12-36) U/L Alkaline Phosphatase 119 H (56-112) IU/L Total Protein 6.8 (6.0-8.0) g/dL Albumin 2.4 L (2.9-4.5) g/dL Globulin 4.4 g/dL Albumin/Globulin Ratio 0.6 Amylase 37 (25-115) U/L Lipase 122 (73-393) U/L Urine Color (YELLOW) Urine Appearance (CLEAR) Urine pH (5.0-6.5) Ur Specific [place] (1.010-1.025) Urine Protein (NEGATIVE) mg/dL Urine Glucose (UA) (NORMAL) mg/dL Urine Ketones (NEGATIVE) mg/dL Urine Occult Blood (NEGATIVE) Urine Nitrite (NEGATIVE) Urine Bilirubin (NEGATIVE) Urine Urobilinogen (NEGATIVE) mg/dL Ur Leukocyte Esterase (NEGATIVE) Urine RBC (0-5) Urine WBC (0-5) Ur Squamous Epith Cells (NS,R,O) Urine Bacteria (NS) SARS-CoV-2 RNA (EARL) (NEGATIVE) 07/12/21 07/12/21 Range/Units 15:27 15:30 WBC (3.0-10.3) x10-3/uL RBC (3.60-5.20) x10(6)uL Hgb (11.4-15.5) g/dL Hct (34.2-48.2) % MCV (76.7-100.5) fL MCH (23.9-33.9) pg MCHC (31.9-34.8) g/dL RDW (12.3-16.5) % Plt Count (151-488) x10(3)uL MPV (7.1-12.4) fL Neut % (Auto) (30.8-76.2) % Lymph % (Auto) (18.4-52.1) % [place] % (Auto) (4.4-15.7) % Eos % (Auto) (0.6-8.1) % Baso % (Auto) (0.2-1.5) % Neut # (Auto) (1.5-6.3) x10-3/uL Lymph # (Auto) (1.0-4.4) x10-3/uL [place] # (Auto) (0.3-1.0) x10-3/uL Eos # (Auto) (0.0-0.8) x10-3/uL Baso # (Auto) (0.0-0.1) x10-3/uL Sodium (135-145) mmol/L Potassium (3.5-5.3) mmol/L Chloride (100-110) mmol/L Carbon Dioxide (21-32) mmol/L BUN (7-18) mg/dL Creatinine (0.55-1.02) mg/dL Est Cr Clr Drug Dosing Estimated GFR (MDRD) (>60) BUN/Creatinine Ratio (9-20) Glucose (80-116) mg/dL Calcium (8.6-10.2) mg/dL Total Bilirubin (0.1-1.3) mg/dL AST (5-25) IU/L ALT (12-36) U/L Alkaline Phosphatase (56-112) IU/L Total Protein (6.0-8.0) g/dL Albumin (2.9-4.5) g/dL Globulin g/dL Albumin/Globulin Ratio Amylase (25-115) U/L Lipase (73-393) U/L Urine Color Yellow (YELLOW) Urine Appearance Slightly cloudy (CLEAR) Urine pH 6.0 (5.0-6.5) Ur Specific [place] 1.010 (1.010-1.025) Urine Protein Trace (NEGATIVE) mg/dL Urine Glucose (UA) Normal (NORMAL) mg/dL Urine Ketones 15 H (NEGATIVE) mg/dL Urine Occult Blood Moderate H (NEGATIVE) Urine Nitrite Positive H (NEGATIVE) Urine Bilirubin Negative (NEGATIVE) Urine Urobilinogen Normal (NEGATIVE) mg/dL Ur Leukocyte Esterase Large H (NEGATIVE) Urine RBC 10-20 H (0-5) Urine WBC 50-75 H (0-5) Ur Squamous Epith Cells Few H (NS,R,O) Urine Bacteria Moderate H (NS) SARS-CoV-2 RNA (EARL) Negative (NEGATIVE) Meds: Medications Generic Name Dose Route Start Last Admin Trade Name Freq PRN Reason Stop Dose Admin Enoxaparin Sodium 30 mg 07/12/21 20:00 Enoxaparin 30 Mg/0.3 Ml Syringe SUBCUT Q24H JEFFREY Sodium Chloride 1,000 mls @ 125 mls/hr 07/12/21 18:45 Normal Saline IV ASDIRECTED JEFFREY Ciprofloxacin/Dextrose 400 mg/ 200 mls @ 200 mls/hr 07/12/21 21:00 Premix IV Q12HR JEFFREY Ondansetron HCl 4 mg 07/12/21 18:00 Ondansetron 4 Mg/2 Ml Sdv IVPUSH Q4H JEFFREY Pantoprazole Sodium 40 mg 07/13/21 09:00 Pantoprazole 40 Mg Vial IVPUSH DAILY JEFFREY Senna/Docusate Sodium 1 tab 07/12/21 18:31 Docusate Sodium/Sennosides 50-8.6 Mg Tab PO BID PRN Constipation Sodium Chloride 10 ml 07/12/21 14:05 Sodium Chloride 0.9% 10 Ml Syringe FLUSH ASDIRECTED PRN Keep Vein Open Discontinued Medications Generic Name Dose Route Start Last Admin Trade Name Freq PRN Reason Stop Dose Admin Diatrizoate Meglum/Diatrizoate Sod 30 ml 07/12/21 16:31 07/12/21 16:57 Diatrizoate Meglumine/Diatrizoate Sodium 37% 30 Ml Bottle PO 07/12/21 16:32 30 ml . DIRECTED ONE Administration Sodium Chloride 1,000 mls @ 999 mls/hr 07/12/21 14:15 07/12/21 14:35 Normal Saline IV 999 mls/hr ASDIRECTED JEFFREY Administration Ciprofloxacin/Dextrose 400 mg/ 200 mls @ 200 mls/hr 07/12/21 18:45 Premix IV Q12HR JEFFREY Iopamidol 75 ml 07/12/21 16:31 07/12/21 16:57 Iopamidol 755 Mg/Ml 75 Ml Bottle IV 07/12/21 16:32 67 ml ASDIRECTED ONE Administration Ondansetron HCl 4 mg 07/12/21 14:07 07/12/21 18:04 Ondansetron 4 Mg/2 Ml Sdv IVPUSH 07/12/21 14:08 Not Given NOW STA Departure - Departure Time of Disposition: 18:00 Disposition: Admitted As Inpatient 67 Condition: Good Clinical Impression: SBO (small bowel obstruction), Anemia, Esophageal cancer UTI (urinary tract infection) Qualifiers: Urinary tract infection type: acute cystitis - Discharge Information Referrals: Isaiah Mcdowell MD [Primary Care Provider] - Forms: ED Department Discharge Sepsis Event Note (ED) - Focused Exam Vital Signs: Vital Signs Temp Pulse Resp BP Pulse Ox 07/12/21 17:00 36.8 C 65 18 123/61 98 - My Orders Last 24 Hours: My Active Orders 07/12/21 14:05 Abdomen Pelvis w Cont [CT] Stat Sodium Chloride 0.9% [Saline Flush] 10 ml FLUSH ASDIRECTED PRN Saline Lock Insert [OM.PC] Routine 07/12/21 15:19 CULTURE URINE [RM] Stat 07/12/21 Dinner Nothing per Oral Now Diet [DIET] 07/12/21 18:00 Ondansetron [Zofran] 4 mg IVPUSH Q4H 07/12/21 18:31 Patient Status [ADT] Routine Antiembolic Devices [RC] .Routine Oxygen Therapy [RC] PRN VTE/DVT Education [RC] Per Unit Routine Vital Signs [RC] Q4H BASIC METABOLIC PANEL,BMP [CHEM] Routine Docusate Sodium/Sennosides [Senna Plus] 1 tab PO BID PRN Resuscitation Status Routine 07/12/21 18:34 Pulse Oximetry [RC] PRN Sequential Compression Device [OM.PC] Per Unit Routine 07/12/21 18:45 Sodium Chloride 0.9% [Normal Saline] 1,000 ml IV ASDIRECTED 07/12/21 20:00 Enoxaparin [Lovenox] 30 mg SUBCUT Q24H 07/12/21 21:00 Ciprofloxacin in D5W [Cipro in D5W 400 MG/200 ML] 400 mg Premix Bag 1 bag IV Q12HR 07/13/21 05:11 CBC WITH AUTO DIFF [HEME] AM 07/13/21 09:00 Pantoprazole [ProTONIX IV] 40 mg IVPUSH DAILY - Assessment/Plan Last 24 Hours: My Active Orders 07/12/21 14:05 Abdomen Pelvis w Cont [CT] Stat Sodium Chloride 0.9% [Saline Flush] 10 ml FLUSH ASDIRECTED PRN Saline Lock Insert [OM.PC] Routine 07/12/21 15:19 CULTURE URINE [RM] Stat 07/12/21 Dinner Nothing per Oral Now Diet [DIET] 07/12/21 18:00 Ondansetron [Zofran] 4 mg IVPUSH Q4H 07/12/21 18:31 Patient Status [ADT] Routine Antiembolic Devices [RC] .Routine Oxygen Therapy [RC] PRN VTE/DVT Education [RC] Per Unit Routine Vital Signs [RC] Q4H BASIC METABOLIC PANEL,BMP [CHEM] Routine Docusate Sodium/Sennosides [Senna Plus] 1 tab PO BID PRN Resuscitation Status Routine 07/12/21 18:34 Pulse Oximetry [RC] PRN Sequential Compression Device [OM.PC] Per Unit Routine 07/12/21 18:45 Sodium Chloride 0.9% [Normal Saline] 1,000 ml IV ASDIRECTED 07/12/21 20:00 Enoxaparin [Lovenox] 30 mg SUBCUT Q24H 07/12/21 21:00 Ciprofloxacin in D5W [Cipro in D5W 400 MG/200 ML] 400 mg Premix Bag 1 bag IV Q12HR 07/13/21 05:11 CBC WITH AUTO DIFF [HEME] AM 07/13/21 09:00 Pantoprazole [ProTONIX IV] 40 mg IVPUSH DAILY
[2021-07-12] MEDS ORDERED: Ondansetron 4 MG/2 ML SDV IVPUSH SCH (18:00)
[2021-07-12] MEDS ORDERED: Ciprofloxacin in D5W 400 MG in Premix Bag 1 BAG IV SCH ×4 (18:45→20:00)
[2021-07-12] MEDS ORDERED: Ondansetron 4 MG/2 ML SDV IVPUSH PRN (18:47)
[2021-07-12] MEDS: Sodium Chloride 0.9% 1,000 ML IV SCH (18:54)
--- NOTE | 2021-07-12 19:44 | CT ---
INDICATION: Abdominal pain. Constipation. CT ABDOMEN AND PELVIS WITH CONTRAST: Spiral 3.75 mm axial sections were obtained through the abdomen and pelvis with oral and IV contrast (67 mL [id number] at 1.6 mL/second) with sagittal and coronal reconstructions 07/12/21 - no comparisons. TOTAL EXAM DLP: 557.58 mGy/cm. The lower lung resendez and pleural space is visualized and showed no definite active infiltrate or effusion. The heart was not grossly enlarged. Coronary artery calcifications and possible aortic valvular calcifications are noted. No pericardial effusion was seen. The liver had a normal appearance. What appears to be milk of calcium bile and possibly some gravel is noted in the gallbladder, which does not appear to be grossly enlarged. The spleen appeared normal. The pancreas is very minimal in size, but otherwise unremarkable. Common bile duct did not appear to be enlarged, allowing for the patient's age. No adrenal abnormality was seen. There is a low-density lesion in the midpole medial cortex of the left kidney, most likely representing a simple cyst. The left kidney was otherwise unremarkable. On the right, there appears to be pyelocaliectasis and ureterectasis down to the level of the proximal to mid pelvis. A degree of obstructive uropathy may be present, but the etiology is indeterminate, as no calculus was seen. Further evaluation, possibly with retrograde pyelography, may be warranted depending upon clinical correlation. Findings are compatible with hydronephrosis. The right kidney was otherwise unremarkable. There is extensive arterial calcification, especially in the aorta, with no aneurysmic dilatation. Calcifications were also noted in the iliac and femoral, as well as gastric arteries. What appears to be a large hutch diverticulum is noted at the right posterior wall of the urinary bladder with thickening of the bladder wall in that area of questionable etiology. Findings may be partly on the basis of postsurgical change, as there is evidence of hysterectomy. The appendix is not definitely visualized. No evidence of free air or complete longstanding mechanical obstruction was identified. However, there are multiple dilated loops of small bowel with [id number]-contrast levels and relatively normal diameter distal small bowel. This suggests a partially obstructive process. The exact location is difficult to determinate. However, there is question of an area of possible postsurgical change with thickening of the wall of the urinary bladder and a hutch diverticulum. At that site, there appears to be narrowing of one of the distal loops of small bowel and this may represent the partial obstructive process site in the lower pelvis, seen on axial images 80 through 84. At any rate, the obstructive process appears to be either early or incomplete, as there is gas and stool in the rectum. No other organomegaly, mass lesions or free fluid collections were identified in the abdomen or pelvis. A wide-mouthed minimal hernia is noted ventrally at the level of the upper pelvis in the midline - periumbilical. No obstruction was seen in that area. IMPRESSION: 1. Findings suggest a partially obstructive distal small bowel process, which may be related to previous hysterectomy surgery in the lower pelvis. There is thickening of the wall of the urinary bladder in that area along with a large right posterior apparent diverticulum, which could represent a hutch diverticulum. It should be correlated clinically. Direct visualization may be warranted in the urinary bladder. 2. Sigmoid diverticulosis without definite evidence of diverticulitis, although it is difficult to entirely exclude adjacent to the area of the lower pelvis - postsurgical change. At any rate, obstruction does not appear to be complete, since there is gas and stool in the rectum. 3. ASD. 4. Obstructive uropathy on the right, which is just above the level of apparent scarring seen in the area of the hysterectomy and apparent distal small bowel partial obstruction. 5. Probable simple cyst, midpole left kidney. 6. Cholelithiasis and/or milk of calcium bile at the gallbladder. 7. ASHD. 8. Sigmoid diverticulosis with difficulty in excluding an area of diverticulitis at the site of previous hysterectomy with increased density in that area. 9. Small fixed hiatal hernia appears to be present. Report was called to Dr. Saldivar at 1800 hours, 07/12/21. [facility]
[2021-07-12] MEDS: Enoxaparin 30 MG/0.3 ML Syringe SUBCUT SCH (21:21)
[2021-07-13] MEDS: Sodium Chloride 0.9% 1,000 ML IV SCH ×2 (03:12→16:11)
[2021-07-13] MEDS: Ciprofloxacin in D5W 400 MG in Premix Bag 1 BAG IV SCH ×2 (09:40)
[2021-07-13] MEDS ORDERED: Acetaminophen 650 MG Supp RECTAL PRN (10:14)
[2021-07-13] MEDS ORDERED: Ketorolac 15 MG/ML SDV IVPUSH PRN (10:21)
[2021-07-13] MEDS: Pantoprazole 40 MG Vial IVPUSH SCH (11:16)
--- NOTE | 2021-07-13 14:30 | CONS ---
DATE OF CONSULTATION: 07/13/2021 HISTORY OF PRESENT ILLNESS: This 89-year-old female was seen today in consultation at the request of Dr. Lee. This patient was admitted yesterday evening with a several-day history of some lower abdominal discomfort, nausea with decreased appetite, and an episode of vomiting yesterday. She underwent a CT scan of the abdomen and pelvis last evening, which was interpreted as showing evidence of a partial small bowel obstruction. The scan was reviewed today with the radiologist, and there is an apparent area of scar tissue around the bladder and in the area where the patient had a previous hysterectomy. This area of scar tissue does appear to be the area where there was some small bowel narrowing, although the obstruction was not complete and contrast did pass through this region. Bowel loops proximal to this were somewhat dilated and bowel loops distal were of normal size. In addition, the patient was also noted to have significant right kidney collecting system dilation consistent with ureteral obstruction, possibly related to the same region of scar tissue. While in the hospital here, the patient did initially have the uncomfortable feeling in her lower abdomen, but this morning had a large bowel movement with both solid and soft material, and she notes currently she feels normal. She denies any abdominal distention. Denies nausea or vomiting and also denies any abdominal pain. The patient was diagnosed with UTI a few days ago in the clinic visit and is not having any bladder pain at this time. PAST MEDICAL HISTORY: Does include previous diagnosis of esophageal cancer which was diagnosed 3 years ago and treated with chemotherapy. She says that she did not have cancer of the uterus and this was removed about 50 years ago for benign disease. Her other previous surgeries include appendectomy, tonsillectomy, breast biopsy as well as shoulder surgery. CURRENT MEDICATIONS: Include: 1. Protonix. 2. Colace. 3. Vitamins. FAMILY HISTORY: Noncontributory. SOCIAL HISTORY: The patient is not . REVIEW OF SYSTEMS: She generally feels well. She indicates that she had some type of cardiac inflammation many years ago, but is not currently having any chest pain or palpitations. No shortness of breath or cough. She does not report any extremity swelling. PHYSICAL EXAMINATION: VITAL SIGNS: Temperature is 98.1, pulse 64, blood pressure is 134/60. GENERAL: The patient is an elderly adult female. She is in no acute distress. HEENT: Head is normocephalic. No scleral icterus. No cervical masses. HEART: Regular without murmur. LUNGS: Clear. ABDOMEN: Currently soft and is mildly tympanitic. I do not feel any abdominal masses or hepatic or splenic enlargement. There is no tenderness on abdominal exam at this time. EXTREMITIES: Show no obvious deformity or edema. IMPRESSION: 1. Partial small bowel obstruction secondary to adhesions, appears to be resolving as indicated by the patient's recent large bowel movement. 2. Obstructive uropathy, right side, possibly also related to scar tissue from previous pelvic scar tissue in region of previous hysterectomy. RECOMMENDATIONS: At this point, I do not recommend any surgical intervention for her apparently resolving bowel obstruction. Would anticipate with resumption of bowel movements that this will resolve. Would consider urology referral for obstructive uropathy on the right side. Thank you for allowing me to see this patient. I will follow up with her mao /[phone] [id number] PHYLLIS/BRIANA
--- NOTE | 2021-07-13 17:46 | PCM.HP.2 ---
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 She stated that she had 2-3 explosive diarrheas about 3 weeks ago then the caliber of her stools kept getting smaller and smaller until they were size of her little finger. She would pass some gas and very tiny amount of stool the past 2 weeks. Yesterday she had nausea and vomiting, but doesn't think there was any stool or blood. She has lost her appetite and has lost about 6 lbs. She went to see her PCP Dr Mcdowell on 07/07, found to have UTI but didn't receive her medications until yesterday which she took 1 dose. She had told him about lower abdominal pain and suspected UTI. No fevers, cough, sore throat, shortness of breath, dysuria, frequency or hematuria that she is aware of but has been having more urgency. She has been chilled for awhile. She has history of esophageal cancer in 2018, had hematemesis/black stools when diagnosis was made, she did not have surgery, had chemotherapy and has not had any trouble swallow/sensation of food getting stuck since then. She had a hysterectomy for fibroids about 45 years ago. She has a ventral hernia, reducible. No rashes, easily bruising or bleeding. Lower Abdomen Pain Score (Numeric/FACES): 2 Left Leg Pain Score (Numeric/FACES): 2 - Related Data Allergies/Adverse Reactions: Allergies Allergy/AdvReac Type Severity Reaction Status Date / Time atorvastatin [From Lipitor] Allergy Other Verified 07/12/21 14:51 codeine Allergy Stomach Verified 07/12/21 14:51 Upset ibuprofen Allergy Swelling Verified 07/12/21 14:51 Penicillins Allergy Itching Verified 07/12/21 14:51 Home Medications: Home Meds Pantoprazole Sodium [Protonix] 40 mg PO BID 06/16/19 [History] Folic Acid/Multivit-Min/Lutein [Multi-Vitamin Gummies] 1 each PO DAILY 09/25/19 [History] Acetaminophen 500 mg PO ASDIRECTED PRN 07/12/21 [History] Ciprofloxacin [Ciprofloxacin HCl] 250 mg PO BID 07/12/21 [History] Docusate Sodium [Colace] 100 mg PO Q48H 07/12/21 [History] Past Medical History HEENT History: Reports: Cataract, Hard of Hearing, Impaired Vision, Macular Degeneration Cardiovascular History: Reports: SOB on Exertion Respiratory History: Reports: None Gastrointestinal History: Reports: Jaundice Musculoskeletal History: Reports: Arthritis Neurological History: Reports: None Psychiatric History: Reports: None Endocrine/Metabolic History: Reports: Diabetes, Type II Hematologic History: Reports: None Immunologic History: Reports: None Oncologic (Cancer) History: Reports: Esophageal Dermatologic History: Reports: None - Infectious Disease History Infectious Disease History: Reports: Chicken Pox, Measles, Mumps - Past Surgical History HEENT Surgical History: Reports: Adenoidectomy, Cataract Surgery, Tonsillectomy Cardiovascular Surgical History: Reports: None Respiratory Surgical History: Reports: None GI Surgical History: Reports: Appendectomy, Colonoscopy, EGD, Other (See Below) Other GI Surgeries/Procedures: PEG tube Female Surgical History: Reports: Hysterectomy, Other (See Below) Other Female Surgeries/Procedures: BREAST LUMPECTOMY Musculoskeletal Surgical History: Reports: Arthroscopic Procedure, Shoulder Surgery Oncologic Surgical History: Reports: None Social & Family History - Family History Family Medical History: No Pertinent Family History - Tobacco Use Tobacco Use Status *Q: Never Tobacco User - Caffeine Use Caffeine Use: Reports: Coffee - Recreational Drug Use Recreational Drug Use: No H&P Review of Systems - Review of Systems: Review Of Systems: Comprehensive ROS is negative, except as noted in HPI. Exam - Exam Exam: See Below - Vital Signs Vital Signs: Last Vital Signs Temp 97 F 07/13/21 12:00 Pulse 59 L 07/13/21 12:00 Resp 20 07/13/21 12:00 BP 131/63 07/13/21 12:00 Pulse Ox 95 07/13/21 12:00 Weight: 128 lb 3.2 oz - Exam General: Alert, Oriented, Cooperative. No: Mild Distress HEENT: PERRLA, Conjunctiva Clear, EOMI, Hearing Intact, Mucosa Moist & [place], Glasses Neck: Trachea Midline Lungs: Clear to Auscultation, Normal Respiratory Effort Cardiovascular: Regular Rate, Regular Rhythm GI/Abdominal Exam: Soft, No Distention, Guarding, Tender (LLQ), Abnormal Bowel S ounds (Hyperactive BS x 3, hypoactive x1(LLQ)), Hernia (reducible), Other (vertical incision left of midline, lower abdomen). No: Rigid, Rebound Extremities: No Pedal Edema, Normal Capillary Refill, Pallor Peripheral Pulses: 2+: Radial (L), Radial (R), Dorsalis Pedis (L), Dorsalis Pedis (R) Skin: Warm, Dry, Intact Psychiatric: Normal Affect, Normal Mood - Patient Data Lab Results Last 24 hrs: Laboratory Results - last 24 hr 07/13/21 07/13/21 07/13/21 Range/Units 07:05 07:05 13:22 WBC 8.3 (3.0-10.3) x10-3/uL RBC 3.79 (3.60-5.20) x10(6)uL Hgb 11.1 L (11.4-15.5) g/dL Hct 33.4 L (34.2-48.2) % MCV 88.1 (76.7-100.5) fL MCH 29.2 (23.9-33.9) pg MCHC 33.2 (31.9-34.8) g/dL RDW 13.7 (12.3-16.5) % Plt Count 424 (151-488) x10(3)uL MPV 6.1 L (7.1-12.4) fL Neut % (Auto) 81.6 H (30.8-76.2) % Lymph % (Auto) 10.4 L (18.4-52.1) % [place] % (Auto) 5.9 (4.4-15.7) % Eos % (Auto) 1.2 (0.6-8.1) % Baso % (Auto) 0.9 (0.2-1.5) % Neut # (Auto) 6.8 H (1.5-6.3) x10-3/uL Lymph # (Auto) 0.9 L (1.0-4.4) x10-3/uL [place] # (Auto) 0.5 (0.3-1.0) x10-3/uL Eos # (Auto) 0.1 (0.0-0.8) x10-3/uL Baso # (Auto) 0.1 (0.0-0.1) x10-3/uL Sodium 144 (135-145) mmol/L Potassium 4.2 (3.5-5.3) mmol/L Chloride 109 (100-110) mmol/L Carbon Dioxide 23 (21-32) mmol/L BUN 15 (7-18) mg/dL Creatinine 1.4 H (0.55-1.02) mg/dL Est Cr Clr Drug Dosing 19.57 mL/min Estimated GFR (MDRD) 35 L (>60) BUN/Creatinine Ratio 10.7 (9-20) Glucose 97 (80-116) mg/dL POC Glucose 84 (80-116) mg/dL Calcium 8.6 (8.6-10.2) mg/dL Result Diagrams: 07/13/21 07:05 07/13/21 07:05 Justice Results Last 24 hrs: Microbiology 07/12/21 15:19 Urine Culture - Preliminary Urine, Clean Catch NO GROWTH AFTER 1 DAY Sepsis Event Note - Focused Exam Vital Signs: Vital Signs Temp Pulse Resp BP Pulse Ox 07/13/21 12:00 97 F 59 L 20 131/63 95 07/13/21 08:00 98.2 F 72 20 124/68 96 *Q Meaningful Use (ADM) - VTE *Q VTE Mechanical Contraindications *Q: At Risk for Falls - VTE Risk Assess *Q Each Risk Factor Represents 1 Point: None Total Score 1 Point Risk Factors: 0 Each Risk Factor Represents 2 Points: Malignancy (present or previous) Total Score 2 Point Risk Factors: 2 Each Risk Factor Represents 3 Points: Age 75 Years or Greater Total Score 3 Point Risk Factors: 3 Each Risk Factor Represents 5 Points: None Total Score 5 Point Risk Factors: 0 Venous Thromboembolism Risk Factor Score *Q: 5 - Problem List (1) SBO (small bowel obstruction) SNOMED Code(s): 673640909 ICD Code: K56.609 - UNSP INTESTNL OBST, UNSP TO PARTIAL VERSUS COMPLETE OBST Status: Acute Current Visit: Yes (2) UTI (urinary tract infection) SNOMED Code(s): 60551562 ICD Code: N39.0 - URINARY TRACT INFECTION, SITE NOT SPECIFIED Status: Acute Current Visit: Yes Qualifiers: Urinary tract infection type: acute cystitis (3) Type 2 diabetes mellitus SNOMED Code(s): 42696889 ICD Code: E11.9 - TYPE 2 DIABETES MELLITUS WITHOUT COMPLICATIONS Status: Chronic Current Visit: No Qualifiers: Diabetes mellitus custodial insulin use: without custodial use (4) Anemia SNOMED Code(s): 971631240 ICD Code: D64.9 - ANEMIA, UNSPECIFIED Status: Chronic Current Visit: Yes (5) Esophageal cancer SNOMED Code(s): 791580808 ICD Code: C15.9 - MALIGNANT NEOPLASM OF ESOPHAGUS, UNSPECIFIED Status: Chronic Current Visit: Yes Onset Date: ~2017 Qualifiers: Malignant neoplasm of esophagus location: unspecified location Qualified Code(s): C15.9 - Malignant neoplasm of esophagus, unspecified Problem List Initiated/Reviewed/Updated: Yes Orders Last 24hrs: Active Orders 24 hr Category Date Time Status Patient Status [ADT] Routine ADT 07/12/21 18:31 Active Accu Check [Blood Glucose Check, Bedside] [RC] Care 07/13/21 08:35 Active QIDACANDBED Antiembolic Devices [RC] .PRN Care 07/12/21 18:31 Active Notify Provider Consults [RC] ASDIRECTED Care 07/13/21 08:35 Active Oxygen Therapy [RC] .PRN Care 07/12/21 18:31 Active Pulse Oximetry [RC] PRN Care 07/12/21 18:34 Active VTE/DVT Education [RC] DAILY Care 07/12/21 18:31 Active Vital Signs [RC] 04,08,12,16,20,00 Care 07/12/21 18:31 Active Consult to Physician [CONS] Routine Cons 07/13/21 08:34 Ordered Soft Diet [DIET] Diet 07/13/21 Dinner Active BASIC METABOLIC PANEL,BMP [CHEM] Routine Lab 07/14/21 06:00 Ordered CBC WITH AUTO DIFF [HEME] Routine Lab 07/14/21 06:00 Ordered Acetaminophen [Tylenol] Med 07/13/21 10:14 Active 650 mg RECTAL Q4H PRN Ciprofloxacin in D5W [Cipro in D5W 400 MG/200 ML] 400 Med 07/13/21 09:00 Active mg Premix Bag 1 bag IV DAILY Docusate Sodium/Sennosides [Senna Plus] Med 07/12/21 18:31 Active 1 tab PO BID PRN Enoxaparin [Lovenox] Med 07/12/21 20:00 Active 30 mg SUBCUT Q24H Ketorolac [Toradol] Med 07/13/21 10:21 Active 15 mg IVPUSH Q8H PRN Ondansetron [Zofran] Med 07/12/21 18:47 Active 4 mg IVPUSH Q4H PRN Pantoprazole [ProTONIX IV] Med 07/13/21 09:00 Active 40 mg IVPUSH DAILY Sodium Chloride 0.9% [Normal Saline] 1,000 ml Med 07/12/21 18:45 Active IV ASDIRECTED Antiembolic Hose [OM.PC] Routine Oth 07/13/21 08:27 Ordered Resuscitation Status Routine Resus Stat 07/12/21 18:31 Ordered Medication Orders Acetaminophen (Acetaminophen 650 Mg Supp) 650 mg RECTAL Q4H PRN PRN Reason: Pain (moderate 4-6) Enoxaparin Sodium (Enoxaparin 30 Mg/0.3 Ml Syringe) 30 mg SUBCUT Q24H [facility] Last Admin: 07/12/21 21:21 Dose: 30 mg Documented by: JOYCE Sodium Chloride (Normal Saline) 1,000 mls @ 125 mls/hr IV ASDIRECTED [facility] Last Admin: 07/13/21 16:11 Dose: 125 mls/hr Documented by: [email or web address] Infusion: 07/13/21 11:12 Dose: 125 mls/hr Documented by: Admin: 07/13/21 03:12 Dose: 125 mls/hr Documented by: Infusion: 07/13/21 02:54 Dose: 125 mls/hr Documented by: Admin: 07/12/21 18:54 Dose: 125 mls/hr Documented by: JUAN J Ciprofloxacin/Dextrose 400 mg/ (Premix) 200 mls @ 200 mls/hr IV DAILY [facility] Last Admin: 07/13/21 09:40 Dose: 200 mls/hr Documented by: [id number] Ketorolac Tromethamine (Ketorolac 15 Mg/Ml Sdv) 15 mg IVPUSH Q8H PRN PRN Reason: Pain (moderate 4-6) Stop: 07/18/21 10:00 Ondansetron HCl (Ondansetron 4 Mg/2 Ml Sdv) 4 mg IVPUSH Q4H PRN PRN Reason: Nausea Pantoprazole Sodium (Pantoprazole 40 Mg Vial) 40 mg IVPUSH DAILY [facility] Last Admin: 07/13/21 11:16 Dose: 40 mg Documented by: ALAYNA Senna/Docusate Sodium (Docusate Sodium/Sennosides 50-8.6 Mg Tab) 1 tab PO BID PRN PRN Reason: Constipation Sodium Chloride (Sodium Chloride 0.9% 10 Ml Syringe) 10 ml FLUSH ASDIRECTED PRN PRN Reason: Keep Vein Open Assessment/Plan Comment:: 1. Admit for inpatient status for small bowel obstruction, UTI, obstructive uropathy. 2. SBO: Consult Dr Kebede, see note. NPO. Soon after visited with her she had a large bowel movement, so given clear liquids and advance diet tonight to soft. 3. UTI: ciprofloxacin 400 mg daily. UC pending. 4. Obstructive uropathy: incidental finding on CT abdomen/pelvis. Spoke with Dr Alvarado, [facility] Urologist, since she is not having pain over the right kidney, possibly from adhesions, stated she could be seen as outpatient, complete antibiotics for UTI. Would need cystoscopy also to see thickened bladder wall, diverticulum. He also stated that her Cr 1.4, is expected for female of her age. 5. Diet: advance as tolerated. 6. Activity: as tolerated. 7. CODE STATUS: FULL. 8. Discharge planning: once she is tolerating her diet, possibly discharge back to [facility]. - Mortality Measure Prognosis:: Good
[2021-07-13] MEDS: Enoxaparin 30 MG/0.3 ML Syringe SUBCUT SCH (21:01)
[2021-07-14] MEDS: Ciprofloxacin in D5W 400 MG in Premix Bag 1 BAG IV SCH ×2 (09:19)
[2021-07-14] MEDS: Pantoprazole 40 MG Vial IVPUSH SCH (09:20)
--- NOTE | 2021-07-14 19:06 | PCM.DCSUM1 ---
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 She stated that she had 2-3 explosive diarrheas about 3 weeks ago then the caliber of her stools kept getting smaller and smaller until they were size of her little finger. She would pass some gas and very tiny amount of stool the past 2 weeks. Yesterday she had nausea and vomiting, but doesn't think there was any stool or blood. She has lost her appetite and has lost about 6 lbs. She went to see her PCP Dr Mcdowell on 07/07, found to have UTI but didn't receive her medications until yesterday which she took 1 dose. She had told him about lower abdominal pain and suspected UTI. No fevers, cough, sore throat, shortness of breath, dysuria, frequency or hematuria that she is aware of but has been having more urgency. She has been chilled for awhile. She has history of esophageal cancer in 2018, had hematemesis/black stools when diagnosis was made, she did not have surgery, had chemotherapy and has not had any trouble swallow/sensation of food getting stuck since then. She had a hysterectomy for fibroids about 45 years ago. She has a ventral hernia, reducible. No rashes, easily bruising or bleeding. Diagnosis: Stroke: No - Discharge Data Discharge Date: 07/14/21 Discharge Disposition: Home, Self-Care 01 Condition: Good - Referral to Home Health Primary Care Physician: Isaiah Mcdowell MD - Discharge Diagnosis/Problem(s) (1) SBO (small bowel obstruction) SNOMED Code(s): 990657240 ICD Code: K56.609 - UNSP INTESTNL OBST, UNSP TO PARTIAL VERSUS COMPLETE OBST Status: Resolved (2) UTI (urinary tract infection) SNOMED Code(s): 32575311 ICD Code: N39.0 - URINARY TRACT INFECTION, SITE NOT SPECIFIED Status: Acute Problem Details: E. coli sensitive to ciprofloxacin(UA[facility]UC from [facility], spoke with Dr Mcdowell). Qualifiers: Urinary tract infection type: acute cystitis (3) Type 2 diabetes mellitus SNOMED Code(s): 92346393 ICD Code: E11.9 - TYPE 2 DIABETES MELLITUS WITHOUT COMPLICATIONS Status: Chronic Qualifiers: Diabetes mellitus buttermaker helper insulin use: without senior care use (4) Anemia SNOMED Code(s): 595709853 ICD Code: D64.9 - ANEMIA, UNSPECIFIED Status: Chronic (5) Esophageal cancer SNOMED Code(s): 976869832 ICD Code: C15.9 - MALIGNANT NEOPLASM OF ESOPHAGUS, UNSPECIFIED Status: Chronic Onset Date: ~2017 Qualifiers: Malignant neoplasm of esophagus location: unspecified location Qualified Code(s): C15.9 - Malignant neoplasm of esophagus, unspecified - Patient Summary/Data Consults: Consultations 07/13/21 08:34 Consult to Physician [CONS] Routine Consulting Provider: Leno Kebede Call Completed to Consulting Physician: Yes Reason for Consult: sbo, esophageal ca Person Notified: yes Date Notified: 07/13/21 Time Notified: 08:35 Hospital Course: She was admitted for small bowel obstruction, placed on bowel rest, NPO and IVF, she also had UTI present prior to admission had just take 1 dose of Cipro prior to admission. Dr Mcdowell stated her urine culture grew E. Coli sensitive to ciprofloxacin. Ciprofloxacin 400 mg IV daily x 3 doses, will resume 250 mg bid starting on Sunday. She had large bowel movement morning prior to Dr Kebede seeing her, she had 2 more BM on and then another one this morning. Her diet was advanced on Sunday and she tolerated it well. She had incidental finding of thickened bladder wall, hutch diverticulum, & obstructive uropathy on right, suspect adhesion, no stones. Spoke with Dr Alvarado [facility], recommended outpatient urology referral for cystoscopy as she does not have acute kidney failure secondary to the obstruction. He questioned bladder cancer with thickened bladder wall at her age. Spoke with Dr Mcdowell and they are going to work her in tomorrow at 1030 am to get her set up with Urology. - Patient Instructions Diet: Usual Diet as Tolerated Activity: As Tolerated Driving: Do Not Drive Showering/Bathing: May Shower Notify Provider of: Fever, Increased Pain, Nausea and/or Vomiting Other/Special Instructions: Follow up with Mathew Cruz/Dr Mcdowell tomorrow at [facility] to set up urology referral and hospital recheck small bowel obstruction. - Discharge Plan *PRESCRIPTION DRUG MONITORING PROGRAM REVIEWED*: Not Applicable *COPY OF PRESCRIPTION DRUG MONITORING REPORT IN PATIENT AUGUST: Not Applicable Home Medications: Home Meds Pantoprazole Sodium [Protonix] 40 mg PO BID 06/16/19 [History] Folic Acid/Multivit-Min/Lutein [Multi-Vitamin Gummies] 1 each PO DAILY 09/25/19 [History] Acetaminophen 500 mg PO ASDIRECTED PRN 07/12/21 [History] Ciprofloxacin [Ciprofloxacin HCl] 250 mg PO BID 07/12/21 [History] Docusate Sodium [Colace] 100 mg PO Q48H 07/12/21 [History] Patient Handouts: Urinary Tract Infection, Adult, [id number], Fall Prevention in Hospitals, Adult, Venous Thromboembolism Prevention Forms: ED Department Discharge Referrals: Isaiah Mcdowell MD [Primary Care Provider] - - Discharge Summary/Plan Comment DC Time >30 min.: No Total # of Minutes for Discharge Time: 15 min - General Info Date of Service: 07/14/21 Subjective Update: She has had a few BM since yesterday, diet advanced which she tolerated. She has been taking herself to the bathroom. Dr Mcdowell stated her urine culture came back, grew E. Coli sensitive to ciprofloxacin. No pain. No nausea or vomiting. - Patient Data Vitals - Most Recent: Last Vital Signs Temp 97.2 F 07/14/21 06:10 Pulse 69 07/14/21 06:10 Resp 18 07/14/21 06:10 BP 158/84 H 07/14/21 06:10 Pulse Ox 96 07/14/21 06:10 Weight - Most Recent: 128 lb 3.2 oz Lab Results - Last 24 hrs: Laboratory Results - last 24 hr 07/14/21 07/14/21 07/14/21 Range/Units 06:15 06:15 11:37 WBC 10.4 H (3.0-10.3) x10-3/uL RBC 3.94 (3.60-5.20) x10(6)uL Hgb 11.6 (11.4-15.5) g/dL Hct 35.1 (34.2-48.2) % MCV 89.1 (76.7-100.5) fL MCH 29.6 (23.9-33.9) pg MCHC 33.2 (31.9-34.8) g/dL RDW 13.6 (12.3-16.5) % Plt Count 455 (151-488) x10(3)uL MPV 6.3 L (7.1-12.4) fL Neut % (Auto) 81.6 H (30.8-76.2) % Lymph % (Auto) 9.2 L (18.4-52.1) % Banner % (Auto) 6.5 (4.4-15.7) % Eos % (Auto) 1.8 (0.6-8.1) % Baso % (Auto) 0.9 (0.2-1.5) % Neut # (Auto) 8.5 H (1.5-6.3) x10-3/uL Lymph # (Auto) 1.0 (1.0-4.4) x10-3/uL Banner # (Auto) 0.7 (0.3-1.0) x10-3/uL Eos # (Auto) 0.2 (0.0-0.8) x10-3/uL Baso # (Auto) 0.1 (0.0-0.1) x10-3/uL Sodium 143 (135-145) mmol/L Potassium 4.0 (3.5-5.3) mmol/L Chloride 107 (100-110) mmol/L Carbon Dioxide 24 (21-32) mmol/L BUN 15 (7-18) mg/dL Creatinine 1.4 H (0.55-1.02) mg/dL Est Cr Clr Drug Dosing 19.57 mL/min Estimated GFR (MDRD) 35 L (>60) BUN/Creatinine Ratio 10.7 (9-20) Glucose 102 (80-116) mg/dL POC Glucose 107 (80-116) mg/dL Calcium 8.8 (8.6-10.2) mg/dL ELEANOR Results - Last 24 hrs: Microbiology 07/12/21 15:19 Urine Culture - Final Urine, Clean Catch MIXED POSITIVE INGRID DAY 2 Med Orders - Current: Current Medications Discontinued Medications Acetaminophen (Acetaminophen 650 Mg Supp) 650 mg RECTAL Q4H PRN PRN Reason: Pain (moderate 4-6) Diatrizoate Meglum/Diatrizoate Sod (Diatrizoate Meglumine/Diatrizoate Sodium 37% 30 Ml Bottle) 30 ml PO . DIRECTED ONE Stop: 07/12/21 16:32 Last Admin: 07/12/21 16:57 Dose: 30 ml Documented by: Enoxaparin Sodium (Enoxaparin 30 Mg/0.3 Ml Syringe) 30 mg SUBCUT Q24H [facility] Last Admin: 07/13/21 21:01 Dose: 30 mg Documented by: Sodium Chloride (Normal Saline) 1,000 mls @ 999 mls/hr IV ASDIRECTED [facility] Last Admin: 07/12/21 14:35 Dose: 999 mls/hr Documented by: Sodium Chloride (Normal Saline) 1,000 mls @ 125 mls/hr IV ASDIRECTED [facility] Last Admin: 07/13/21 16:11 Dose: 125 mls/hr Documented by: Ciprofloxacin/Dextrose 400 mg/ (Premix) 200 mls @ 200 mls/hr IV Q12HR [facility] Ciprofloxacin/Dextrose 400 mg/ (Premix) 200 mls @ 200 mls/hr IV BID [facility] Ciprofloxacin/Dextrose 400 mg/ (Premix) 200 mls @ 200 mls/hr IV DAILY [facility] Last Admin: 07/14/21 09:19 Dose: 200 mls/hr Documented by: Iopamidol (Iopamidol 755 Mg/Ml 75 Ml Bottle) 75 ml IV ASDIRECTED ONE Stop: 07/12/21 16:32 Last Admin: 07/12/21 16:57 Dose: 67 ml Documented by: Ketorolac Tromethamine (Ketorolac 15 Mg/Ml Sdv) 15 mg IVPUSH Q8H PRN PRN Reason: Pain (moderate 4-6) Stop: 07/18/21 10:00 Ondansetron HCl (Ondansetron 4 Mg/2 Ml Sdv) 4 mg IVPUSH NOW [facility] Stop: 07/12/21 14:08 Last Admin: 07/12/21 18:04 Dose: Not Given Documented by: Ondansetron HCl (Ondansetron 4 Mg/2 Ml Sdv) 4 mg IVPUSH Q4H [facility] Last Admin: 07/12/21 19:21 Dose: Not Given Documented by: Ondansetron HCl (Ondansetron 4 Mg/2 Ml Sdv) 4 mg IVPUSH Q4H PRN PRN Reason: Nausea Pantoprazole Sodium (Pantoprazole 40 Mg Vial) 40 mg IVPUSH DAILY [facility] Last Admin: 07/14/21 09:20 Dose: 40 mg Documented by: Senna/Docusate Sodium (Docusate Sodium/Sennosides 50-8.6 Mg Tab) 1 tab PO BID PRN PRN Reason: Constipation Sodium Chloride (Sodium Chloride 0.9% 10 Ml Syringe) 10 ml FLUSH ASDIRECTED PRN PRN Reason: Keep Vein Open Last Admin: 07/14/21 09:20 Dose: 10 ml Documented by: - Exam General: Reports: Alert, Oriented, Cooperative, No Acute Distress Lungs: Reports: Clear to Auscultation, Normal Respiratory Effort Cardiovascular: Reports: Regular Rate, Regular Rhythm GI/Abdominal Exam: Normal Bowel Sounds, Soft, Non-Tender, No Distention (Female) Exam: Deferred Rectal (Female) Exam: Deferred Extremities: No Pedal Edema, Normal Capillary Refill *Q Meaningful Use (DIS) - VTE *Q VTE Mechanical Contraindications *Q: At Risk for Falls
== END 2021-07-14 13:40 | disposition home or self-care (01) | DRG 247 ==
LOC: FB.ED 13:41 → FB.MS 18:58
PROVIDERS: ADMIT Family Medicine; ATTEND Family Medicine
DX: K56.51 Intestinal adhesions [bands], with partial obstruction (principal); N13.9 Obstructive and reflux uropathy, unspecified; N30.00 Acute cystitis without hematuria; B96.20 Unspecified Escherichia coli [E. coli] as the cause of diseases classified elsewhere; C67.9 Malignant neoplasm of bladder, unspecified; D64.9 Anemia, unspecified; C15.9 Malignant neoplasm of esophagus, unspecified; N32.3 Diverticulum of bladder; H54.7 Unspecified visual loss; Z20.822 Contact with and (suspected) exposure to COVID-19; E11.9 Type 2 diabetes mellitus without complications; H91.90 Unspecified hearing loss, unspecified ear; H35.30 Unspecified macular degeneration; M19.90 Unspecified osteoarthritis, unspecified site; K59.00 Constipation, unspecified; K43.9 Ventral hernia without obstruction or gangrene; Z88.5 Allergy status to narcotic agent; Z88.0 Allergy status to penicillin; Z88.8 Allergy status to other drugs, medicaments and biological substances; Z79.899 Other long term (current) drug therapy; Z98.49 Cataract extraction status, unspecified eye; Z90.49 Acquired absence of other specified parts of digestive tract; Z90.710 Acquired absence of both cervix and uterus; Z98.890 Other specified postprocedural states
CPT/HCPCS: 36415; 74177; 80048; 80053; 81001; 82150; 82947; 83690; 85025; 87086; 99285-25; C9113; J0744; J1650; J7030; Q9963; Q9967; U0002